=== PATIENT | male | born 1965 | race Caucasian/White ===

== ENCOUNTER 2018-10-17 09:46 | Emergency (ER) | payer SELFPAY ==
--- NOTE | 2018-10-17 10:34 | RAD ---
EXAM: XR Foot Rt 3 View STANDARD PROVIDED CLINICAL HISTORY: Right great toe osteomyelitis COMPARISON: 11/10/2007 FINDINGS: There is a fragmented and osteolytic appearance to the great toe terminal tuft. There is soft tissue swelling surrounding this bony change. No additional acute osseous abnormality is evident. Alignment appears otherwise anatomic. Joint spaces appear preserved. Calcaneal enthesophyte formation is noted. IMPRESSION: Fragmentation and osteolysis of the great toe terminal tuft, compatible with osteomyelitis in the zeferino ropriate clinical context.
== END 2018-10-17 11:45 | disposition home or self-care (01) ==
LOC: ERS 09:46
DX: M86.9 Osteomyelitis, unspecified (principal); E66.01 Morbid (severe) obesity due to excess calories; E11.9 Type 2 diabetes mellitus without complications; Z79.4 Long term (current) use of insulin; Z79.899 Other long term (current) drug therapy

== ENCOUNTER 2021-12-05 16:35 | Inpatient (IN) | payer OTHER ==
[2021-12-05 17:30] LABS: #Basophils 0.1 thou/uL (0.0-0.2); #Eosinphils 0.1 thou/uL (0.0-0.7); #Lymphocytes 1.9 thou/uL (1.20-3.40); #Monocytes 0.6 thou/uL (0.11-0.59); #Neutrophils 8.3 thou/uL (1.40-6.50); %Basophils 0.7 % (0.0-1.0); %Eosinophils 1.2 % (0.0-10.0); %Lymphocytes 17.4 % (21.0-51.0); %Monocytes 5.3 % (0.0-10.0); %Neutrophils 75.4 % (42.0-75.0); Hemoglobin 13.3 g/dL (14.0-18.0); Mean Corpuscular HGB CONC 29.5 g/dL (32.0-36.0); Mean Corpuscular Hemoglobin 22.9 pg (27.0-31.0); Mean Corpuscular Volume 77.6 fL (78.0-98.0); Mean Platelet Volume 6.2 fL (7.4-10.4); Platelet Count 227 thou/uL (130-400); RBC Distribution Width 20.8 % (11.5-14.5); Red Blood Cell (RBC) Count 5.81 mill/uL (4.70-6.10)
[2021-12-05 17:49] LABS: Anisocytosis SLIGHT = 6-15 cells (100X) (0-5/hpf); Hypochromia SLIGHT = 6-15 cells (100X) (0-5/hpf); MDiff Complete? YES; Microcytosis SLIGHT = 6-15 cells (100X) (0-5/hpf); Ovalocytes SLIGHT = 2-5 cells (100X) (0-1/hpf); Platelet Morphology Comment Appears Adequate; Polychromasia SLIGHT = 2-3 cells (100X) (0-2/hpf); Tear Drops SLIGHT = 2-5 cells (100X) (0-1/hpf)
[2021-12-05 17:51] LABS: ALT (SGPT) 10 U/L (8-55); AST (SGOT) 12 U/L (5-34); Albumin 4.1 g/dL (3.5-5.0); Alkaline Phosphatase 80 U/L (40-110); Anion Gap 16 mmol/L (10-20); BUN (Urea Nitrogen) 25 mg/dL (8.4-25.7); Bilirubin, Total 1.4 mg/dL (0.2-1.2); Calc. Creatinine Clearance 0 mL/min (70-130); Calcium 9.2 mg/dL (7.8-10.44); Carbon Dioxide 22 mmol/L (22-29); Chloride 96 mmol/L (98-107); Globulin 3.2 g/dL (2.4-3.5); Magnesium 1.5 mg/dL (1.6-2.6); Potassium 4.2 mmol/L (3.5-5.1); Protein, Total 7.3 g/dL (6.0-8.3); Sodium 130 mmol/L (136-145)
[2021-12-05 18:04] LABS: Glucose 555 mg/dL (70-105)
[2021-12-05] MEDS ORDERED: Magnesium 2 GM/50 ML BAG (IN WATER) ONE (18:29)
[2021-12-05] MEDS ORDERED: cefTRIAXone\\ROCEPHIN 2 GM VIAL ONE (18:30)
[2021-12-05] MEDS ORDERED: Vancomycin 1 GM/200 ML BAG ONE ×2 (18:34→21:08)
[2021-12-05] MEDS ORDERED: Digoxin 0.5 MG/2 ML AMP ONE (18:54)
[2021-12-05] MEDS ORDERED: methylPREDNISolone Sod Succ/PF 125 MG/2 ML VIAL ONE (19:00)
[2021-12-05] MEDS ORDERED: diphenhydrAMINE 50 MG/ML VIAL ONE (19:00)
[2021-12-05] MEDS ORDERED: EPINEPHrine 1 MG/ML VIAL ONE (19:03)
[2021-12-05] MEDS ORDERED: EPINEPHrine 1 MG/10 ML Abboject SYRINGE ONE (19:03)
[2021-12-05] MEDS ORDERED: Ondansetron PF 4 MG/2 ML Vial ONE (19:05)
[2021-12-05] MEDS ORDERED: Norepinephrine 8 MG/0.9% NS 250 ML ONE (19:05)
[2021-12-05] MEDS ORDERED: Midazolam HCl 2 mg/2 ml Vial ONE (19:19)
[2021-12-05] MEDS ORDERED: Fentanyl 100 MCG/2 ML VIAL ONE (19:22)
[2021-12-05] MEDS ORDERED: Acetaminophen 650 MG Suppository PR PRN (19:44)
[2021-12-05] MEDS ORDERED: HumaLOG 300 UNITS/3 ML VIAL SC PRN (19:44)
[2021-12-05] MEDS ORDERED: Dextrose 5% in Water 1,000 ML IV PRN (19:44)
[2021-12-05] MEDS ORDERED: Ondansetron PF 4 MG/2 ML Vial IVP PRN (19:44)
[2021-12-05] MEDS ORDERED: Ondansetron ODT 4 MG TAB PO PRN (19:44)
[2021-12-05] MEDS ORDERED: Dextrose 50% Abboject 50 ML SYRINGE SLOW IVP PRN (19:44)
[2021-12-05] MEDS ORDERED: Electrolyte Replacement Protocol 1 EACH FS SCH (20:00)
[2021-12-05] MEDS ORDERED: Amiodarone 150 MG/3 ML VIAL ONE (20:01)
[2021-12-05] MEDS ORDERED: Amiodarone 450 MG, Admixture Fee 1 EACH in Dextrose 5% in Water 250 ML IVPB SCH (20:15)
[2021-12-05 20:18] LABS: Lactic Acid 2.6 mmol/L (0.5-2.2)
[2021-12-05 20:44] LABS: Bilirubin Negative (Negative); Blood, Urine Negative (Negative); Clarity Clear (Clear); Glucose, Urine (Dipstick) Greater than 1000 mg/dL (Negative); Ketone, Urine Negative (Negative); Leukocyte Negative Leu/uL (Negative); Nitrite Negative (Negative); Protein, Urine (Dipstick) 20 mg/dL (Neg-Trace); Specific Gravity, Urine 1.017 (1.002-1.036)
[2021-12-05 21:31] LABS: SARS-CoV-2 NAA Rapid Test Not Detected (NotDetected)
[2021-12-05] MEDS ORDERED: Sodium Chloride 0.9% 1,000 ML IV SCH (21:45)
[2021-12-06] MEDS: HumaLOG 300 UNITS/3 ML VIAL SC PRN ×5 (00:06→21:32)
[2021-12-06 00:36] LABS: Lactic Acid 1.5 mmol/L (0.5-2.2)
[2021-12-06 00:44] LABS: Troponin I 0.042 ng/mL (< 0.028)
[2021-12-06] MEDS ORDERED: Apixaban 5 MG TAB PO SCH (00:45)
[2021-12-06 04:04] LABS: Anion Gap 15 mmol/L (10-20); BUN (Urea Nitrogen) 28 mg/dL (8.4-25.7); Calc. Creatinine Clearance 143 mL/min (70-130); Calcium 8.8 mg/dL (7.8-10.44); Carbon Dioxide 20 mmol/L (22-29); Chloride 100 mmol/L (98-107); Glucose 541 mg/dL (70-105); Iron 22 ug/dL (65-175); Iron Binding Capacity, Total 305 mcg/dL (261-462); Potassium 4.9 mmol/L (3.5-5.1); Sodium 130 mmol/L (136-145)
[2021-12-06 04:06] LABS: #Lymphocytes 0.7 thou/uL (1.20-3.40); #Monocytes 0.1 thou/uL (0.11-0.59); #Neutrophils 11.4 thou/uL (1.40-6.50); %Eosinophils 0.1 % (0.0-10.0); %Lymphocytes 5.5 % (21.0-51.0); %Monocytes 0.7 % (0.0-10.0); %Neutrophils 93.6 % (42.0-75.0); Anisocytosis MODERATE=16-30 cells (100X) (0-5/hpf); Elliptocytes SLIGHT = 2-5 cells (100X) (0-1/hpf); Hemoglobin 14.2 g/dL (14.0-18.0); Hypochromia SLIGHT = 6-15 cells (100X) (0-5/hpf); MDiff Complete? YES; Mean Corpuscular HGB CONC 29.4 g/dL (32.0-36.0); Mean Corpuscular Hemoglobin 23.2 pg (27.0-31.0); Mean Corpuscular Volume 78.9 fL (78.0-98.0); Mean Platelet Volume 5.9 fL (7.4-10.4); Platelet Count 186 thou/uL (130-400); Platelet Morphology Comment Appears Adequate; Polychromasia SLIGHT = 2-3 cells (100X) (0-2/hpf); Tear Drops SLIGHT = 2-5 cells (100X) (0-1/hpf); White Blood Cell (WBC) Count 12.1 thou/uL (4.8-10.8)
[2021-12-06 04:11] LABS: Iron 23 ug/dL (65-175); Iron Binding Capacity, Total 304 mcg/dL (261-462)
[2021-12-06] MEDS: Acetaminophen 325 MG TAB PO PRN (05:28)
[2021-12-06 07:26] LABS: Acetaminophen Less than 10.0 mcg/mL (10.0-30.0); Alcohol Less than 10 mg/dL (Less than 10); Salicylate Less than 8.0 mg/dL (15.0-30.0)
[2021-12-06] MEDS: Apixaban 5 MG TAB PO SCH ×2 (07:28→20:05)
[2021-12-06] MEDS: Aspirin 81 mg Enteric Coated Tablet PO SCH (07:28)
[2021-12-06 07:50] LABS: Amphetamine Not Detected (NotDetected); Barbiturates Screen Not Detected (NotDetected); Benzodiazepine Screen Not Detected (NotDetected); Cocaine Metabolite Screen Not Detected (NotDetected); Methadone Not Detected (NotDetected); Methamphetamine Not Detected (NotDetected); Opiate Screen Not Detected (NotDetected); Oxycodone Screen Not Detected (NotDetected); Phencyclidine (PCP) Not Detected (NotDetected); THC/Cannabinoid Screen Not Detected (NotDetected); Tricyclic Screen Not Detected (NotDetected)
[2021-12-06] MEDS: Famotidine 20 MG TAB PO SCH ×2 (09:27→20:05)
[2021-12-06] MEDS ORDERED: Insulin Glargine 30 UNITS/0.3 ML VIAL SC SCH ×2 (10:30→14:00)
[2021-12-06] MEDS ORDERED: Sodium Chloride 0.9% 500 ML IV SCH (10:30)
[2021-12-06] MEDS ORDERED: Amiodarone 450 MG, Admixture Fee 1 EACH in Dextrose 5% in Water 250 ML IVPB SCH ×2 (15:56→16:00)
[2021-12-06] MEDS: Amiodarone 200 MG TAB PO SCH (20:04)
[2021-12-06] MEDS: Simvastatin 10 MG TAB PO SCH (20:05)
[2021-12-07 03:53] LABS: #Lymphocytes 0.9 thou/uL (1.20-3.40); #Monocytes 0.7 thou/uL (0.11-0.59); #Neutrophils 9.8 thou/uL (1.40-6.50); %Basophils 0.1 % (0.0-1.0); %Eosinophils 0.2 % (0.0-10.0); %Lymphocytes 8.1 % (21.0-51.0); %Monocytes 5.9 % (0.0-10.0); %Neutrophils 85.7 % (42.0-75.0); Hemoglobin 13.1 g/dL (14.0-18.0); Mean Corpuscular HGB CONC 29.2 g/dL (32.0-36.0); Mean Corpuscular Hemoglobin 23.4 pg (27.0-31.0); Mean Corpuscular Volume 80.1 fL (78.0-98.0); Mean Platelet Volume 6.4 fL (7.4-10.4); Platelet Count 181 thou/uL (130-400); RBC Distribution Width 20.5 % (11.5-14.5); Red Blood Cell (RBC) Count 5.59 mill/uL (4.70-6.10); White Blood Cell (WBC) Count 11.4 thou/uL (4.8-10.8)
[2021-12-07 03:59] LABS: ALT (SGPT) 10 U/L (8-55); AST (SGOT) 11 U/L (5-34); Albumin 3.9 g/dL (3.5-5.0); Alkaline Phosphatase 69 U/L (40-110); Anion Gap 15 mmol/L (10-20); BUN (Urea Nitrogen) 27 mg/dL (8.4-25.7); Bilirubin, Total 1.2 mg/dL (0.2-1.2); Calc. Creatinine Clearance 169 mL/min (70-130); Calcium 9.4 mg/dL (7.8-10.44); Carbon Dioxide 23 mmol/L (22-29); Chloride 100 mmol/L (98-107); Glucose 504 mg/dL (70-105); Magnesium 2.1 mg/dL (1.6-2.6); Potassium 4.9 mmol/L (3.5-5.1); Protein, Total 6.9 g/dL (6.0-8.3); Sodium 133 mmol/L (136-145)
[2021-12-07] MEDS: HumaLOG 300 UNITS/3 ML VIAL SC PRN ×5 (05:46→21:29)
[2021-12-07] MEDS: Aspirin 81 mg Enteric Coated Tablet PO SCH (07:18)
[2021-12-07] MEDS: Insulin Glargine 30 UNITS/0.3 ML VIAL SC SCH (07:19)
[2021-12-07] MEDS: Amiodarone 200 MG TAB PO SCH ×3 (07:19→21:29)
[2021-12-07] MEDS: Apixaban 5 MG TAB PO SCH ×2 (07:19→21:28)
[2021-12-07] MEDS: Famotidine 20 MG TAB PO SCH ×2 (07:19→21:29)
[2021-12-07] MEDS ORDERED: Insulin Glargine 30 UNITS/0.3 ML VIAL SC SCH ×2 (09:00→21:00)
[2021-12-07] MEDS ORDERED: Bisacodyl 10 MG SUPP PR PRN (11:46)
[2021-12-07] MEDS ORDERED: Bisacodyl 10 MG SUPP PR SCH (12:00)
[2021-12-07] MEDS ORDERED: Milk Of Magnesia 30 ML UDCUP PO SCH (12:00)
[2021-12-07] MEDS: Simvastatin 10 MG TAB PO SCH (21:28)
[2021-12-07] MEDS: Milk Of Magnesia 30 ML UDCUP PO PRN (21:38)
[2021-12-07] MEDS ORDERED: Fleet Enema 133 ML BOT PR SCH (22:00)
[2021-12-08] MEDS: Acetaminophen 325 MG TAB PO PRN ×2 (04:43→15:24)
[2021-12-08] MEDS: HumaLOG 300 UNITS/3 ML VIAL SC PRN ×3 (06:30→18:27)
[2021-12-08] MEDS: Amiodarone 200 MG TAB PO SCH ×3 (10:07→20:58)
[2021-12-08] MEDS: Milk Of Magnesia 30 ML UDCUP PO PRN (10:07)
[2021-12-08] MEDS: Aspirin 81 mg Enteric Coated Tablet PO SCH (10:07)
[2021-12-08] MEDS: Apixaban 5 MG TAB PO SCH ×2 (10:07→20:58)
[2021-12-08] MEDS: Lisinopril 20 MG TAB PO SCH (10:08)
[2021-12-08] MEDS: Famotidine 20 MG TAB PO SCH ×2 (10:08→20:59)
[2021-12-08] MEDS: Insulin Glargine 30 UNITS/0.3 ML VIAL SC SCH ×2 (10:09→20:58)
[2021-12-08] MEDS: Simvastatin 10 MG TAB PO SCH (20:59)
[2021-12-09] MEDS: HumaLOG 300 UNITS/3 ML VIAL SC PRN ×3 (05:47→21:43)
[2021-12-09] MEDS: Lisinopril 20 MG TAB PO SCH (09:06)
[2021-12-09] MEDS: Amiodarone 200 MG TAB PO SCH ×3 (09:06→21:43)
[2021-12-09] MEDS: Apixaban 5 MG TAB PO SCH ×2 (09:07→21:43)
[2021-12-09] MEDS: Famotidine 20 MG TAB PO SCH ×2 (09:07→21:43)
[2021-12-09] MEDS: Aspirin 81 mg Enteric Coated Tablet PO SCH (09:07)
[2021-12-09] MEDS: Insulin Glargine 30 UNITS/0.3 ML VIAL SC SCH ×2 (09:08→21:43)
[2021-12-09] MEDS ORDERED: Bisacodyl 10 MG SUPP PR SCH (11:00)
[2021-12-09] MEDS ORDERED: Milk Of Magnesia 30 ML UDCUP PO SCH (11:15)
[2021-12-09] MEDS: Simvastatin 10 MG TAB PO SCH (21:43)
[2021-12-10] MEDS: HumaLOG 300 UNITS/3 ML VIAL SC PRN ×4 (06:47→21:01)
[2021-12-10 08:52] LABS: #Eosinphils 0.2 thou/uL (0.0-0.7); #Lymphocytes 1.1 thou/uL (1.20-3.40); #Monocytes 0.5 thou/uL (0.11-0.59); #Neutrophils 6.4 thou/uL (1.40-6.50); %Basophils 0.3 % (0.0-1.0); %Eosinophils 2.7 % (0.0-10.0); Anisocytosis SLIGHT = 6-15 cells (100X) (0-5/hpf); Elliptocytes SLIGHT = 2-5 cells (100X) (0-1/hpf); Hemoglobin 13.8 g/dL (14.0-18.0); Large Platelets SLIGHT; MDiff Complete? YES; Mean Corpuscular HGB CONC 29.2 g/dL (32.0-36.0); Mean Corpuscular Hemoglobin 23.1 pg (27.0-31.0); Mean Corpuscular Volume 79.2 fL (78.0-98.0); Platelet Count 194 thou/uL (130-400); Platelet Morphology Comment Appears Adequate; RBC Distribution Width 19.8 % (11.5-14.5); Red Blood Cell (RBC) Count 5.99 mill/uL (4.70-6.10); White Blood Cell (WBC) Count 8.2 thou/uL (4.8-10.8)
[2021-12-10] MEDS ORDERED: Insulin Glargine 30 UNITS/0.3 ML VIAL SC SCH ×2 (09:00→09:58)
[2021-12-10] MEDS: Lisinopril 20 MG TAB PO SCH (09:51)
[2021-12-10] MEDS: Milk Of Magnesia 30 ML UDCUP PO SCH (09:51)
[2021-12-10] MEDS: Insulin Glargine 30 UNITS/0.3 ML VIAL SC SCH (09:51)
[2021-12-10] MEDS: Famotidine 20 MG TAB PO SCH ×2 (09:52→21:01)
[2021-12-10] MEDS: Aspirin 81 mg Enteric Coated Tablet PO SCH (09:52)
[2021-12-10] MEDS: Apixaban 5 MG TAB PO SCH ×2 (09:52→21:01)
[2021-12-10] MEDS: Amiodarone 200 MG TAB PO SCH ×3 (09:52→21:01)
[2021-12-10] MEDS ORDERED: Bumetanide 1 MG TAB PO SCH ×2 (09:58→10:15)
[2021-12-10] MEDS: HumaLOG 300 UNITS/3 ML VIAL SC SCH ×2 (12:48→17:27)
[2021-12-10] MEDS: Simvastatin 10 MG TAB PO SCH (21:01)
[2021-12-11] MEDS: HumaLOG 300 UNITS/3 ML VIAL SC PRN ×3 (05:50→17:42)
[2021-12-11] MEDS ORDERED: Bumetanide 1 MG TAB PO SCH ×4 (06:00→12:00)
[2021-12-11] MEDS ORDERED: Insulin Glargine 30 UNITS/0.3 ML VIAL SC SCH ×2 (09:00→21:00)
[2021-12-11] MEDS: HumaLOG 300 UNITS/3 ML VIAL SC SCH ×3 (09:06→17:41)
[2021-12-11] MEDS: Apixaban 5 MG TAB PO SCH ×2 (09:07→19:37)
[2021-12-11] MEDS: Amiodarone 200 MG TAB PO SCH ×3 (09:07→19:37)
[2021-12-11] MEDS: Famotidine 20 MG TAB PO SCH ×2 (09:07→19:37)
[2021-12-11] MEDS: Aspirin 81 mg Enteric Coated Tablet PO SCH (09:07)
[2021-12-11] MEDS: Lisinopril 20 MG TAB PO SCH (09:08)
[2021-12-11] MEDS: Milk Of Magnesia 30 ML UDCUP PO SCH (09:08)
[2021-12-11 09:24] VITALS: BMI 52.4
[2021-12-11] MEDS ORDERED: Metoprolol Tartrate 25 MG TAB PO SCH ×2 (13:15→21:00)
[2021-12-11 17:14] VITALS: TEMP 97.1
[2021-12-11] MEDS: Simvastatin 10 MG TAB PO SCH (19:38)
[2021-12-11 19:39] VITALS: BP 129/60
[2021-12-11] MEDS ORDERED: Lisinopril 20 MG TAB PO SCH (21:00)
== END 2021-12-11 20:14 | DRG 309 ==
LOC: ERS 16:35 → CCU 20:10 → 2NO 12-07 14:47
PROVIDERS: ADMIT Student in an Organized Health Care Education/Training Program; ATTEND Internal Medicine
DX: I48.19 Other persistent atrial fibrillation (principal); E87.2 Acidosis; N17.9 Acute kidney failure, unspecified; R65.10 Systemic inflammatory response syndrome (SIRS) of non-infectious origin without acute organ dysfunction; R45.851 Suicidal ideations; E87.1 Hypo-osmolality and hyponatremia; Z68.43 Body mass index [BMI] 50.0-59.9, adult; E11.65 Type 2 diabetes mellitus with hyperglycemia; E11.51 Type 2 diabetes mellitus with diabetic peripheral angiopathy without gangrene; I11.0 Hypertensive heart disease with heart failure; E66.01 Morbid (severe) obesity due to excess calories; E83.42 Hypomagnesemia; I95.9 Hypotension, unspecified; D50.9 Iron deficiency anemia, unspecified; G47.33 Obstructive sleep apnea (adult) (pediatric); T36.1X5A Adverse effect of cephalosporins and other beta-lactam antibiotics, initial encounter; I42.8 Other cardiomyopathies; K59.00 Constipation, unspecified; I50.9 Heart failure, unspecified; Z20.822 Contact with and (suspected) exposure to COVID-19; Z88.1 Allergy status to other antibiotic agents; Z88.5 Allergy status to narcotic agent; Z79.84 Long term (current) use of oral hypoglycemic drugs; Z79.01 Long term (current) use of anticoagulants; Z79.4 Long term (current) use of insulin; Z89.511 Acquired absence of right leg below knee
CPT/HCPCS: 36415; 36416; 71045; 76770; 80048; 80053; 80306; 80307; 81003; 82550; 82728; 83540; 83550; 83605; 83735; 83880; 84443; 84484; 85025; 85379; 87040; 87086; 93005; 94660; 96365; 96366; 96368; 96372; 96375; 96376; J0171; J0282; J0696; J1160; J1200; J1815; J2250; J2405; J2930; J3010; J3370; J3475; J7050; J7070; U0002

== ENCOUNTER 2022-02-07 14:45 | Outpatient (CLI) | payer OTHER ==
[2022-02-07 15:51] LABS: Hemoglobin 13.8 g/dL (13.5-17.5)
[2022-02-07 16:18] LABS: Anion Gap 15 mmol/L (10-20); BUN (Urea Nitrogen) 21 mg/dL (8.4-25.7); Calc. Creatinine Clearance 0 mL/min (70-130); Calcium 9.6 mg/dL (7.8-10.44); Carbon Dioxide 28 mmol/L (22-29); Chloride 102 mmol/L (98-107); Estimated GFR 95; Glucose 205 mg/dL (70-105); Potassium 5.4 mmol/L (3.5-5.1); Sodium 140 mmol/L (136-145)
== END 2022-02-07 14:46 | disposition home or self-care (01) ==
LOC: LABBT 14:45
PROVIDERS: ATTEND Internal Medicine Cardiovascular Disease
DX: Z01.812 Encounter for preprocedural laboratory examination (principal); Z20.822 Contact with and (suspected) exposure to COVID-19
CPT/HCPCS: 80048; 85014; 85018; 87811

== ENCOUNTER 2022-02-12 05:14 | Day surgery (SDC) | payer OTHER ==
[2022-02-11 09:33] VITALS: BMI 57.2
[2022-02-12] MEDS ORDERED: Lidocaine 1% 50ML VIAL ONE (07:24)
[2022-02-12] MEDS ORDERED: Acetaminophen/Codeine 30-300mg Tablet ONE (09:35)
== END 2022-02-12 13:09 | disposition home or self-care (01) ==
LOC: SDC 05:14
PROVIDERS: ATTEND Internal Medicine Cardiovascular Disease
PROC: 04HY32Z Insertion of Monitoring Device into Lower Artery, Percutaneous Approach (ICD-10-PCS; principal; 2022-02-12)
DX: E11.51 Type 2 diabetes mellitus with diabetic peripheral angiopathy without gangrene (principal); I70.212 Atherosclerosis of native arteries of extremities with intermittent claudication, left leg; I10 Essential (primary) hypertension; E78.5 Hyperlipidemia, unspecified; I48.20 Chronic atrial fibrillation, unspecified; F17.290 Nicotine dependence, other tobacco product, uncomplicated; G47.30 Sleep apnea, unspecified; I83.90 Asymptomatic varicose veins of unspecified lower extremity; E66.01 Morbid (severe) obesity due to excess calories; Z68.43 Body mass index [BMI] 50.0-59.9, adult; Z79.01 Long term (current) use of anticoagulants; Z79.4 Long term (current) use of insulin; Z79.82 Long term (current) use of aspirin; Z79.84 Long term (current) use of oral hypoglycemic drugs; Z79.899 Other long term (current) drug therapy; Z88.1 Allergy status to other antibiotic agents; Z88.5 Allergy status to narcotic agent; Z88.8 Allergy status to other drugs, medicaments and biological substances; Z89.511 Acquired absence of right leg below knee
CPT/HCPCS: 36247; 75710; C1769; C1894; J3490

== ENCOUNTER 2022-08-05 13:39 | Inpatient (IN) | payer OTHER ==
[2022-08-05 14:20] LABS: #Basophils 0.1 thou/uL (0.0-0.2); #Eosinphils 0.3 thou/uL (0.0-0.7); #Lymphocytes 2.4 thou/uL (1.20-3.40); #Monocytes 0.8 thou/uL (0.11-0.59); #Neutrophils 8.6 thou/uL (1.40-6.50); %Basophils 0.7 % (0.0-1.0); %Eosinophils 2.5 % (0.0-10.0); %Lymphocytes 19.6 % (21.0-51.0); %Monocytes 6.6 % (0.0-10.0); %Neutrophils 70.6 % (42.0-75.0); Hemoglobin 15.9 g/dL (14.0-18.0); Mean Corpuscular HGB CONC 32.5 g/dL (32.0-36.0); Mean Corpuscular Hemoglobin 26.8 pg (27.0-31.0); Mean Corpuscular Volume 82.6 fl (78.0-98.0); Platelet Count 250 10x3/uL (130-400); RBC Distribution Width 16.6 % (11.5-14.5); Red Blood Cell (RBC) Count 5.93 mill/uL (4.70-6.10); White Blood Cell (WBC) Count 12.2 10x3/uL (4.8-10.8)
[2022-08-05 14:40] LABS: ALT (SGPT) 14 U/L (8-55); AST (SGOT) 15 U/L (5-34); Alkaline Phosphatase 115 U/L (40-110); Anion Gap 14 mmol/L (10-20); BUN (Urea Nitrogen) 40 mg/dL (8.4-25.7); Bilirubin, Total 0.7 mg/dL (0.2-1.2); Calc. Creatinine Clearance 0 mL/min (70-130); Calcium 8.9 mg/dL (7.8-10.44); Carbon Dioxide 21 mmol/L (22-29); Chloride 106 mmol/L (98-107); Estimated GFR 82; Globulin 2.9 g/dL (2.4-3.5); Glucose 69 mg/dL (70-105); Potassium 4.5 mmol/L (3.5-5.1); Protein, Total 6.9 g/dL (6.0-8.3); Sodium 136 mmol/L (136-145)
[2022-08-05] MEDS ORDERED: Dextrose 50% Abboject 50 ML SYRINGE ONE (14:46)
[2022-08-05] MEDS ORDERED: Nitroglycerin 2% Ointment 1 INCH/1 GM Packet ONE (14:53)
[2022-08-05 18:15] LABS: Troponin I Less than 0.010 ng/mL (< 0.028)
[2022-08-05 18:43] LABS: Bacteria/HPF 4+ HPF (None Seen); Bilirubin Negative (Negative); Blood, Urine 1+ (Negative); Clarity Turbid (Clear); Glucose, Urine (Dipstick) Normal (Negative); Ketone, Urine Negative (Negative); Leukocyte 500 Leu/uL (Negative); Nitrite 2+ (Negative); Protein, Urine (Dipstick) 10 mg/dL (Neg-Trace); Specific Gravity, Urine 1.018 (1.002-1.036); Squamous Epithelial 0-3 HPF (0-3); Urobilinogen Normal mg/dL (Less than 2); WBC/HPF Greater than 50 HPF (0-3); pH, Urine 5.5 (5.0-9.0)
[2022-08-05] MEDS ORDERED: clonazePAM 0.5 MG TAB PO PRN (21:21)
[2022-08-05] MEDS ORDERED: Milk Of Magnesia 30 ML UDCUP PO PRN (21:21)
[2022-08-05] MEDS ORDERED: Bumetanide 1 MG TAB PO PRN (21:21)
[2022-08-05 21:22] LABS: Troponin I Less than 0.010 ng/mL (< 0.028)
[2022-08-05] MEDS ORDERED: Senokot S 8.6-50 MG TAB PO PRN (21:24)
[2022-08-05] MEDS ORDERED: Ondansetron ODT 4 MG TAB PO PRN (21:24)
[2022-08-05] MEDS ORDERED: Acetaminophen 325 MG TAB PO PRN (21:24)
[2022-08-05] MEDS ORDERED: Dextrose 50% Abboject 50 ML SYRINGE SLOW IVP PRN (21:27)
[2022-08-05] MEDS ORDERED: Dextrose 5% in Water 1,000 ML IV PRN (21:27)
[2022-08-05 23:54] VITALS: BMI 55.3
[2022-08-06] MEDS: HumaLOG 300 UNITS/3 ML VIAL SC PRN ×4 (01:17→22:48)
[2022-08-06 05:50] LABS: Anion Gap 9 mmol/L (10-20); BUN (Urea Nitrogen) 30 mg/dL (8.4-25.7); Calc. Creatinine Clearance 194 mL/min (70-130); Calcium 8.7 mg/dL (7.8-10.44); Carbon Dioxide 27 mmol/L (22-29); Chloride 103 mmol/L (98-107); Estimated GFR 83; Glucose 313 mg/dL (70-105); Potassium 5.2 mmol/L (3.5-5.1); Sodium 134 mmol/L (136-145)
[2022-08-06] MEDS: Bumetanide 1 MG TAB PO SCH (06:13)
[2022-08-06] MEDS: Carvedilol 25 MG TAB PO SCH ×2 (08:16→18:24)
[2022-08-06] MEDS: Apixaban 5 MG TAB PO SCH ×2 (08:16→21:25)
[2022-08-06] MEDS: Famotidine 20 MG TAB PO SCH ×2 (08:17→21:25)
[2022-08-06] MEDS: Insulin Glargine 30 UNITS/0.3 ML VIAL SC SCH (08:18)
[2022-08-06] MEDS: Lisinopril 20 MG TAB PO SCH (08:20)
[2022-08-06] MEDS ORDERED: metFORMIN 500 MG TAB PO SCH (09:00)
[2022-08-06] MEDS ORDERED: Insulin Glargine 30 UNITS/0.3 ML VIAL SC SCH (09:00)
[2022-08-06 09:09] LABS: Glucose 382 mg/dL (70-105)
[2022-08-06] MEDS ORDERED: Bumetanide 1 MG TAB PO SCH (12:00)
[2022-08-06 20:33] VITALS: TEMP 98.4
[2022-08-06] MEDS ORDERED: Liraglutide [Victoza 2-Pak] 0.6 MG/0.1 ML Pen.Injctr SC SCH (21:00)
[2022-08-06] MEDS: Simvastatin 10 MG TAB PO SCH (21:25)
[2022-08-06 21:41] LABS: Glucose 462 mg/dL (70-105)
[2022-08-07] MEDS: Apixaban 5 MG TAB PO SCH ×2 (00:42→08:57)
[2022-08-07] MEDS: Famotidine 20 MG TAB PO SCH ×2 (00:43→08:57)
[2022-08-07] MEDS: Simvastatin 10 MG TAB PO SCH (00:44)
[2022-08-07 03:54] VITALS: BP 126/93
[2022-08-07] MEDS: HumaLOG 300 UNITS/3 ML VIAL SC PRN (04:53)
[2022-08-07] MEDS: Bumetanide 1 MG TAB PO SCH (07:06)
[2022-08-07] MEDS: Carvedilol 25 MG TAB PO SCH (08:56)
[2022-08-07] MEDS: Insulin Glargine 30 UNITS/0.3 ML VIAL SC SCH (08:57)
[2022-08-07] MEDS: Lisinopril 20 MG TAB PO SCH (08:57)
== END 2022-08-07 08:45 | disposition home or self-care (01) | DRG 391 ==
LOC: ERS 13:39 → 2SW 17:21 → OBSVTOIN 08-06 08:17
PROVIDERS: ADMIT Family Medicine; ATTEND Hospitalist
PROC: 5A09357 Assistance with Respiratory Ventilation, Less than 24 Consecutive Hours, Continuous Positive Airway Pressure (ICD-10-PCS; principal; 2022-08-06)
PROC: 8E0ZXY6 Isolation (ICD-10-PCS; 2022-08-06)
DX: K21.9 Gastro-esophageal reflux disease without esophagitis (principal); U07.1 COVID-19; N39.0 Urinary tract infection, site not specified; I50.32 Chronic diastolic (congestive) heart failure; J96.11 Chronic respiratory failure with hypoxia; I48.21 Permanent atrial fibrillation; Z68.43 Body mass index [BMI] 50.0-59.9, adult; R07.89 Other chest pain; E66.01 Morbid (severe) obesity due to excess calories; E11.51 Type 2 diabetes mellitus with diabetic peripheral angiopathy without gangrene; E78.5 Hyperlipidemia, unspecified; E11.610 Type 2 diabetes mellitus with diabetic neuropathic arthropathy; G47.33 Obstructive sleep apnea (adult) (pediatric); I11.0 Hypertensive heart disease with heart failure; R31.9 Hematuria, unspecified; Z88.8 Allergy status to other drugs, medicaments and biological substances; Z88.5 Allergy status to narcotic agent; Z86.718 Personal history of other venous thrombosis and embolism; Z98.890 Other specified postprocedural states; Z89.511 Acquired absence of right leg below knee; Z88.1 Allergy status to other antibiotic agents; Z79.84 Long term (current) use of oral hypoglycemic drugs; Z79.899 Other long term (current) drug therapy; Z79.4 Long term (current) use of insulin
CPT/HCPCS: 36415; 36416; 71045; 80048; 80053; 81003; 81015; 83880; 84484; 85025; 87077; 87086; 87186; 93005; 94660; 94760; 96365; G0378; J1815; J1956; J7999; Q0162; U0003; U0005

== ENCOUNTER 2023-01-19 12:19 | Inpatient (IN) | payer OTHER ==
[2023-01-19 13:07] LABS: #Basophils 0.1 thou/uL (0.0-0.2); #Eosinphils 0.2 thou/uL (0.0-0.7); #Monocytes 0.8 thou/uL (0.11-0.59); #Neutrophils 11.1 thou/uL (1.40-6.50); %Basophils 0.6 % (0.0-1.0); %Eosinophils 1.1 % (0.0-10.0); %Lymphocytes 13.5 % (21.0-51.0); %Monocytes 5.4 % (0.0-10.0); %Neutrophils 78.3 % (42.0-75.0); Hematocrit 48.5 % (42.0-52.0); Hemoglobin 15.8 g/dL (14.0-18.0); Mean Corpuscular HGB CONC 32.6 g/dL (32.0-36.0); Mean Corpuscular Hemoglobin 26.2 pg (27.0-31.0); Mean Corpuscular Volume 80.3 fl (78.0-98.0); Mean Platelet Volume 10.8 fL (7.4-10.4); Platelet Count 210 10x3/uL (130-400); Red Blood Cell (RBC) Count 6.04 mill/uL (4.70-6.10); White Blood Cell (WBC) Count 14.1 10x3/uL (4.8-10.8)
[2023-01-19 13:30] LABS: ALT (SGPT) 15 U/L (8-55); AST (SGOT) 16 U/L (5-34); Albumin 4.1 g/dL (3.5-5.0); Alkaline Phosphatase 87 U/L (40-110); Anion Gap 18 mmol/L (10-20); BUN (Urea Nitrogen) 65 mg/dL (8.4-25.7); Bilirubin, Total 0.5 mg/dL (0.2-1.2); Calc. Creatinine Clearance 0 mL/min (70-130); Calcium 9.2 mg/dL (7.8-10.44); Carbon Dioxide 26 mmol/L (22-29); Chloride 94 mmol/L (98-107); Estimated GFR 35; Glucose 227 mg/dL (70-105); Potassium 5.2 mmol/L (3.5-5.1); Protein, Total 7.1 g/dL (6.0-8.3); Sodium 133 mmol/L (136-145)
[2023-01-19] MEDS ORDERED: Ondansetron PF 4 MG/2 ML Vial ONE (13:45)
[2023-01-19] MEDS ORDERED: LevoFLOXacin 750 mg/D5W 150 ml Premix Bag ONE (15:42)
[2023-01-19] MEDS ORDERED: Dextrose 5% in Water 1,000 ML IV PRN (16:27)
[2023-01-19] MEDS ORDERED: Dextrose 50% Abboject 50 ML SYRINGE SLOW IVP PRN (16:27)
[2023-01-19] MEDS ORDERED: Glucagon 1 MG/ML KIT IM PRN (16:27)
[2023-01-19] MEDS: Furosemide 40 MG/4 ML VIAL SLOW IVP SCH (18:19)
[2023-01-19] MEDS ORDERED: Carvedilol 25 MG TAB PO SCH (21:00)
[2023-01-19] MEDS ORDERED: Pravastatin Sodium 20 MG TAB PO SCH (21:00)
[2023-01-19] MEDS: HumaLOG 300 UNITS/3 ML VIAL SC PRN (21:08)
[2023-01-19] MEDS: Propafenone HCl 150 MG TAB PO SCH (21:08)
[2023-01-19] MEDS: Apixaban 5 MG TAB PO SCH (21:08)
[2023-01-20 05:04] LABS: #Basophils 0.2 thou/uL (0.0-0.2); #Eosinphils 0.2 thou/uL (0.0-0.7); #Monocytes 0.8 thou/uL (0.11-0.59); #Neutrophils 7.6 thou/uL (1.40-6.50); %Basophils 1.5 % (0.0-1.0); %Eosinophils 1.4 % (0.0-10.0); %Lymphocytes 18.7 % (21.0-51.0); %Monocytes 7.6 % (0.0-10.0); %Neutrophils 69.6 % (42.0-75.0); Hematocrit 53.1 % (42.0-52.0); Hemoglobin 16.3 g/dL (14.0-18.0); Mean Corpuscular HGB CONC 30.7 g/dL (32.0-36.0); Mean Corpuscular Hemoglobin 26.2 pg (27.0-31.0); Platelet Count 162 10x3/uL (130-400); RBC Distribution Width 17.2 % (11.5-14.5); Red Blood Cell (RBC) Count 6.23 mill/uL (4.70-6.10); White Blood Cell (WBC) Count 10.9 10x3/uL (4.8-10.8)
[2023-01-20 05:11] LABS: Mean Corpuscular Volume 85.2 fl (78.0-98.0)
[2023-01-20 05:31] LABS: Anion Gap 17 mmol/L (10-20); BUN (Urea Nitrogen) 66 mg/dL (8.4-25.7); Calc. Creatinine Clearance 104 mL/min (70-130); Calcium 9.2 mg/dL (7.8-10.44); Carbon Dioxide 23 mmol/L (22-29); Chloride 95 mmol/L (98-107); Estimated GFR 38; Glucose 345 mg/dL (70-105); Potassium 4.7 mmol/L (3.5-5.1); Sodium 130 mmol/L (136-145)
[2023-01-20] MEDS: Furosemide 40 MG/4 ML VIAL SLOW IVP SCH (05:45)
[2023-01-20] MEDS: Propafenone HCl 150 MG TAB PO SCH ×3 (05:45→22:14)
[2023-01-20] MEDS: HumaLOG 300 UNITS/3 ML VIAL SC PRN ×4 (05:45→22:14)
[2023-01-20] MEDS: Aspirin 81 mg Enteric Coated Tablet PO SCH (08:54)
[2023-01-20] MEDS: Apixaban 5 MG TAB PO SCH ×2 (08:54→22:14)
[2023-01-20] MEDS: Rosuvastatin 20 MG TAB PO SCH (08:54)
[2023-01-20] MEDS: dilTIAZem CD 180 MG CAP PO SCH (08:54)
[2023-01-20] MEDS: Ferrous Sulfate 325 MG TAB PO SCH (08:54)
[2023-01-20] MEDS ORDERED: dilTIAZem CD 180 MG CAP PO SCH (12:30)
[2023-01-20] MEDS ORDERED: Insulin Glargine 30 UNITS/0.3 ML VIAL SC SCH (15:05)
[2023-01-20] MEDS: Carvedilol 25 MG TAB PO SCH (16:25)
[2023-01-20] MEDS ORDERED: Non-Formulary Item 1 EACH (Insulin Degludec [Tresiba Flextouch U-100] 100 UNIT/ML Insuln. SQ SCH (21:00)
[2023-01-20] MEDS: Melatonin 3 MG TAB PO PRN (22:14)
[2023-01-21 04:11] LABS: #Basophils 0.1 thou/uL (0.0-0.2); #Eosinphils 0.2 thou/uL (0.0-0.7); #Neutrophils 8.5 thou/uL (1.40-6.50); %Basophils 0.5 % (0.0-1.0); %Lymphocytes 18.6 % (21.0-51.0); %Monocytes 7.9 % (0.0-10.0); %Neutrophils 70.3 % (42.0-75.0); Hematocrit 53.2 % (42.0-52.0); Hemoglobin 16.9 g/dL (14.0-18.0); Mean Corpuscular HGB CONC 31.8 g/dL (32.0-36.0); Mean Corpuscular Hemoglobin 25.8 pg (27.0-31.0); Mean Platelet Volume 10.3 fL (7.4-10.4); Platelet Count 203 10x3/uL (130-400); RBC Distribution Width 17.2 % (11.5-14.5); Red Blood Cell (RBC) Count 6.54 mill/uL (4.70-6.10); White Blood Cell (WBC) Count 12.1 10x3/uL (4.8-10.8)
[2023-01-21 04:13] LABS: Mean Corpuscular Volume 81.3 fl (78.0-98.0)
[2023-01-21 04:37] LABS: Anion Gap 14 mmol/L (10-20); BUN (Urea Nitrogen) 72 mg/dL (8.4-25.7); Calc. Creatinine Clearance 114 mL/min (70-130); Calcium 9.8 mg/dL (7.8-10.44); Carbon Dioxide 27 mmol/L (22-29); Chloride 97 mmol/L (98-107); Estimated GFR 43; Glucose 136 mg/dL (70-105); Potassium 3.9 mmol/L (3.5-5.1); Sodium 134 mmol/L (136-145)
[2023-01-21] MEDS ORDERED: Furosemide 40 MG/4 ML VIAL SLOW IVP SCH (06:00)
[2023-01-21] MEDS: Propafenone HCl 150 MG TAB PO SCH ×3 (06:10→20:07)
[2023-01-21] MEDS: Aspirin 81 mg Enteric Coated Tablet PO SCH (08:17)
[2023-01-21] MEDS: Carvedilol 25 MG TAB PO SCH ×2 (08:17→16:42)
[2023-01-21] MEDS: Apixaban 5 MG TAB PO SCH ×2 (08:17→20:07)
[2023-01-21] MEDS: Insulin Glargine 30 UNITS/0.3 ML VIAL SC SCH ×2 (08:17→20:07)
[2023-01-21] MEDS: dilTIAZem CD 180 MG CAP PO SCH (08:17)
[2023-01-21] MEDS: Rosuvastatin 20 MG TAB PO SCH (08:17)
[2023-01-21] MEDS: Ferrous Sulfate 325 MG TAB PO SCH (08:17)
[2023-01-21] MEDS: Albumin 25% 25 GM/100 ML BOT IVPB SCH ×2 (08:18→13:52)
[2023-01-21] MEDS ORDERED: Metolazone 5 MG TAB PO SCH (08:30)
[2023-01-21] MEDS: HumaLOG 300 UNITS/3 ML VIAL SC PRN ×2 (11:12→17:39)
[2023-01-21] MEDS: Furosemide 40 MG TAB PO SCH (13:52)
[2023-01-21] MEDS: Melatonin 3 MG TAB PO PRN (20:20)
[2023-01-22] MEDS: Albumin 25% 25 GM/100 ML BOT IVPB SCH ×2 (01:35→06:24)
[2023-01-22 04:59] LABS: Anion Gap 17 mmol/L (10-20); BUN (Urea Nitrogen) 80 mg/dL (8.4-25.7); Calc. Creatinine Clearance 96 mL/min (70-130); Calcium 9.9 mg/dL (7.8-10.44); Carbon Dioxide 29 mmol/L (22-29); Chloride 94 mmol/L (98-107); Estimated GFR 35; Glucose 150 mg/dL (70-105); Potassium 3.9 mmol/L (3.5-5.1); Sodium 136 mmol/L (136-145)
[2023-01-22] MEDS: HumaLOG 300 UNITS/3 ML VIAL SC PRN ×4 (06:24→21:34)
[2023-01-22] MEDS: Propafenone HCl 150 MG TAB PO SCH ×3 (06:24→21:34)
[2023-01-22] MEDS: Insulin Glargine 30 UNITS/0.3 ML VIAL SC SCH ×2 (08:31→21:34)
[2023-01-22] MEDS: Carvedilol 25 MG TAB PO SCH ×2 (08:31→16:22)
[2023-01-22] MEDS: Ferrous Sulfate 325 MG TAB PO SCH (08:31)
[2023-01-22] MEDS: Aspirin 81 mg Enteric Coated Tablet PO SCH (08:31)
[2023-01-22] MEDS: dilTIAZem CD 180 MG CAP PO SCH (08:31)
[2023-01-22] MEDS: Rosuvastatin 20 MG TAB PO SCH (08:31)
[2023-01-22] MEDS: Furosemide 40 MG TAB PO SCH ×2 (08:31→14:08)
[2023-01-22] MEDS: Apixaban 5 MG TAB PO SCH ×2 (08:31→21:34)
[2023-01-22 11:16] VITALS: BMI 55.6
[2023-01-22] MEDS: Melatonin 3 MG TAB PO PRN (21:34)
[2023-01-23 04:58] LABS: Anion Gap 21 mmol/L (10-20); BUN (Urea Nitrogen) 83 mg/dL (8.4-25.7); Calc. Creatinine Clearance 95 mL/min (70-130); Calcium 10.2 mg/dL (7.8-10.44); Carbon Dioxide 26 mmol/L (22-29); Chloride 93 mmol/L (98-107); Estimated GFR 35; Glucose 83 mg/dL (70-105); Potassium 3.8 mmol/L (3.5-5.1); Sodium 136 mmol/L (136-145)
[2023-01-23] MEDS: Propafenone HCl 150 MG TAB PO SCH ×3 (06:07→12:19)
[2023-01-23] MEDS: Apixaban 5 MG TAB PO SCH (08:11)
[2023-01-23] MEDS: Carvedilol 25 MG TAB PO SCH (08:11)
[2023-01-23] MEDS: Furosemide 40 MG TAB PO SCH (08:11)
[2023-01-23] MEDS: dilTIAZem CD 180 MG CAP PO SCH (08:11)
[2023-01-23] MEDS: Ferrous Sulfate 325 MG TAB PO SCH (08:11)
[2023-01-23] MEDS: Aspirin 81 mg Enteric Coated Tablet PO SCH (08:11)
[2023-01-23] MEDS: Rosuvastatin 20 MG TAB PO SCH (08:12)
[2023-01-23] MEDS: Insulin Glargine 30 UNITS/0.3 ML VIAL SC SCH (08:19)
[2023-01-23] MEDS: HumaLOG 300 UNITS/3 ML VIAL SC PRN (12:27)
[2023-01-23 12:51] VITALS: BP 117/76; TEMP 97.9
== END 2023-01-23 14:38 | disposition home or self-care (01) | DRG 291 ==
LOC: ERS 12:19 → 2NO 14:46
PROVIDERS: ADMIT Internal Medicine; ATTEND Internal Medicine
PROC: 5A09357 Assistance with Respiratory Ventilation, Less than 24 Consecutive Hours, Continuous Positive Airway Pressure (ICD-10-PCS; principal; 2023-01-20)
DX: I13.0 Hypertensive heart and chronic kidney disease with heart failure and stage 1 through stage 4 chronic kidney disease, or unspecified chronic kidney disease (principal); I50.33 Acute on chronic diastolic (congestive) heart failure; J18.9 Pneumonia, unspecified organism; N17.9 Acute kidney failure, unspecified; Z68.43 Body mass index [BMI] 50.0-59.9, adult; E87.1 Hypo-osmolality and hyponatremia; I48.20 Chronic atrial fibrillation, unspecified; E11.65 Type 2 diabetes mellitus with hyperglycemia; F17.220 Nicotine dependence, chewing tobacco, uncomplicated; E11.51 Type 2 diabetes mellitus with diabetic peripheral angiopathy without gangrene; E66.01 Morbid (severe) obesity due to excess calories; F45.8 Other somatoform disorders; G47.33 Obstructive sleep apnea (adult) (pediatric); N18.30 Chronic kidney disease, stage 3 unspecified; E78.5 Hyperlipidemia, unspecified; E11.22 Type 2 diabetes mellitus with diabetic chronic kidney disease; Z79.4 Long term (current) use of insulin; Z79.899 Other long term (current) drug therapy; Z89.511 Acquired absence of right leg below knee; Z88.5 Allergy status to narcotic agent; Z88.8 Allergy status to other drugs, medicaments and biological substances; Z79.01 Long term (current) use of anticoagulants; Z79.82 Long term (current) use of aspirin; Z79.84 Long term (current) use of oral hypoglycemic drugs
CPT/HCPCS: 36415; 36416; 71045; 80048; 80053; 83880; 84484; 85025; 93005; 94660; 96365; 96375; J1815; J1940; J1956; J2405; P9047

== ENCOUNTER 2023-02-02 19:14 | Emergency (ER) | payer OTHER ==
[2023-02-02 19:51] LABS: #Basophils 0.1 thou/uL (0.0-0.2); #Eosinphils 0.3 thou/uL (0.0-0.7); #Monocytes 0.9 thou/uL (0.11-0.59); %Basophils 0.6 % (0.0-1.0); %Eosinophils 1.7 % (0.0-10.0); %Lymphocytes 14.6 % (21.0-51.0); %Monocytes 6.4 % (0.0-10.0); Hematocrit 45.9 % (42.0-52.0); Hemoglobin 15.7 g/dL (14.0-18.0); Mean Corpuscular HGB CONC 34.2 g/dL (32.0-36.0); Mean Corpuscular Hemoglobin 27.1 pg (27.0-31.0); Mean Corpuscular Volume 79.3 fl (78.0-98.0); Platelet Count 377 10x3/uL (130-400); Red Blood Cell (RBC) Count 5.79 mill/uL (4.70-6.10); White Blood Cell (WBC) Count 14.4 10x3/uL (4.8-10.8)
[2023-02-02 20:15] LABS: ALT (SGPT) 17 U/L (8-55); AST (SGOT) 21 U/L (5-34); Albumin 4.3 g/dL (3.5-5.0); Alkaline Phosphatase 98 U/L (40-110); Anion Gap 17 mmol/L (10-20); BUN (Urea Nitrogen) 49 mg/dL (8.4-25.7); Bilirubin, Total 0.9 mg/dL (0.2-1.2); Calc. Creatinine Clearance 0 mL/min (70-130); Calcium 9.9 mg/dL (7.8-10.44); Carbon Dioxide 26 mmol/L (22-29); Chloride 96 mmol/L (98-107); Estimated GFR 48; Globulin 3.4 g/dL (2.4-3.5); Glucose 239 mg/dL (70-105); Potassium 3.9 mmol/L (3.5-5.1); Protein, Total 7.7 g/dL (6.0-8.3); Sodium 135 mmol/L (136-145)
== END 2023-02-02 23:10 | disposition home or self-care (01) ==
LOC: ERS 19:14
DX: M25.561 Pain in right knee (principal); I11.0 Hypertensive heart disease with heart failure; I50.9 Heart failure, unspecified; I48.91 Unspecified atrial fibrillation; E11.9 Type 2 diabetes mellitus without complications; F17.220 Nicotine dependence, chewing tobacco, uncomplicated; Z79.01 Long term (current) use of anticoagulants; Z79.899 Other long term (current) drug therapy; Z79.84 Long term (current) use of oral hypoglycemic drugs; Z79.82 Long term (current) use of aspirin
CPT/HCPCS: 80053; 83880; 85025; 93005; 94760

== ENCOUNTER 2023-02-04 07:18 | Inpatient (IN) | payer OTHER ==
[2023-02-04 08:09] LABS: #Basophils 0.1 thou/uL (0.0-0.2); #Eosinphils 0.2 thou/uL (0.0-0.7); #Monocytes 0.7 thou/uL (0.11-0.59); #Neutrophils 12.3 thou/uL (1.40-6.50); %Basophils 0.4 % (0.0-1.0); %Eosinophils 1.6 % (0.0-10.0); %Lymphocytes 10.7 % (21.0-51.0); %Monocytes 4.9 % (0.0-10.0); %Neutrophils 81.7 % (42.0-75.0); Hemoglobin 14.6 g/dL (14.0-18.0); Mean Corpuscular HGB CONC 31.7 g/dL (32.0-36.0); Mean Corpuscular Hemoglobin 26.2 pg (27.0-31.0); Mean Corpuscular Volume 82.4 fl (78.0-98.0); Mean Platelet Volume 10.6 fL (7.4-10.4); Platelet Count 187 10x3/uL (130-400); RBC Distribution Width 15.9 % (11.5-14.5); Red Blood Cell (RBC) Count 5.58 mill/uL (4.70-6.10); White Blood Cell (WBC) Count 15.1 10x3/uL (4.8-10.8)
[2023-02-04 08:26] LABS: INR-International Normal Ratio 1.5; Prothrombin Time 18.9 sec (12.0-14.7)
[2023-02-04 08:27] LABS: PTT 52.9 sec (22.9-36.1)
[2023-02-04] MEDS ORDERED: Vancomycin 1 GM/200 ML (FROZEN) BAG ONE (08:27)
[2023-02-04 08:32] LABS: ALT (SGPT) 15 U/L (8-55); AST (SGOT) 16 U/L (5-34); Albumin 3.7 g/dL (3.5-5.0); Alkaline Phosphatase 97 U/L (40-110); Anion Gap 15 mmol/L (10-20); BUN (Urea Nitrogen) 47 mg/dL (8.4-25.7); Bilirubin, Total 0.9 mg/dL (0.2-1.2); Calc. Creatinine Clearance 0 mL/min (70-130); Calcium 9.6 mg/dL (7.8-10.44); Carbon Dioxide 28 mmol/L (22-29); Chloride 95 mmol/L (98-107); Estimated GFR 47; Globulin 3.1 g/dL (2.4-3.5); Glucose 320 mg/dL (70-105); Potassium 4.2 mmol/L (3.5-5.1); Protein, Total 6.8 g/dL (6.0-8.3); Sodium 134 mmol/L (136-145)
[2023-02-04 09:26] LABS: Bacteria/HPF None Seen HPF (None Seen); Bilirubin Negative (Negative); Blood, Urine Negative (Negative); CAUTI Indications for Culture Dysuria,urgency,freq; Clarity Clear (Clear); Glucose, Urine (Dipstick) 70 mg/dL (Negative); Ketone, Urine Negative (Negative); Leukocyte Negative Leu/uL (Negative); Nitrite Negative (Negative); Protein, Urine (Dipstick) Negative (Neg-Trace); RBC/HPF 0-3 HPF (0-3); Specific Gravity, Urine 1.024 (1.002-1.036); Squamous Epithelial None Seen HPF (0-3); WBC/HPF 0-3 HPF (0-3)
[2023-02-04 09:28] LABS: Urine Culture Reflex No No
[2023-02-04] MEDS ORDERED: Iopamidol-370 76% 500 ML MDV (1 ML CHARGE) ONE (09:46)
[2023-02-04] MEDS ORDERED: Acetaminophen 325 MG TAB PO PRN (11:01)
[2023-02-04] MEDS ORDERED: Nicotine 14 MG PATCH TD PRN (11:01)
[2023-02-04] MEDS ORDERED: Senokot S 8.6-50 MG TAB PO PRN (11:01)
[2023-02-04] MEDS ORDERED: Acetaminophen 650 MG Suppository PR PRN (11:01)
[2023-02-04] MEDS ORDERED: Dextrose 50% Abboject 50 ML SYRINGE SLOW IVP PRN (11:03)
[2023-02-04] MEDS ORDERED: Melatonin 3 MG TAB PO PRN (11:03)
[2023-02-04] MEDS ORDERED: Dextrose 5% in Water 1,000 ML IV PRN (11:03)
[2023-02-04] MEDS ORDERED: Glucagon 1 MG/ML KIT IM PRN (11:03)
[2023-02-04] MEDS ORDERED: HumaLOG 300 UNITS/3 ML VIAL SC PRN (11:03)
[2023-02-04 11:22] LABS: Lactic Acid 1.3 mmol/L (0.5-2.2)
[2023-02-04 11:51] VITALS: BMI 54.8
[2023-02-04] MEDS ORDERED: Bumetanide 1 MG/4 ML VIAL IVP SCH ×2 (12:00→18:00)
[2023-02-04] MEDS: HumaLOG 300 UNITS/3 ML VIAL SC PRN ×2 (12:50→17:29)
[2023-02-04] MEDS: Propafenone HCl 150 MG TAB PO SCH ×2 (12:50→21:06)
[2023-02-04] MEDS ORDERED: Vancomycin 1.5 GRAM/300 ML BAG 1.5 GM in Premix Bag 1 BAG IVPB SCH (13:45)
[2023-02-04] MEDS ORDERED: Meropenem 1 GM in Sodium Chloride 0.9% 100 ML IVPB SCH ×2 (14:00→22:00)
[2023-02-04] MEDS ORDERED: Magnesium Citrate 300 ML BOT PO SCH (16:15)
[2023-02-04] MEDS ORDERED: Carvedilol 3.125 MG TAB PO SCH (21:00)
[2023-02-04] MEDS ORDERED: Vancomycin HCl 1 GM in Sodium Chloride 0.9% 250 ML 300 ML IVPB SCH (21:00)
[2023-02-04] MEDS: Meropenem 1 GM in Sodium Chloride 0.9% 100 ML IVPB SCH (21:05)
[2023-02-04] MEDS: Bumetanide 1 MG TAB PO SCH (21:06)
[2023-02-04] MEDS: Apixaban 5 MG TAB PO SCH (21:06)
[2023-02-04] MEDS ORDERED: Fleet Saline Enema 133 ML BOT PR SCH (22:00)
[2023-02-05 05:49] LABS: #Basophils 0.1 thou/uL (0.0-0.2); #Eosinphils 0.3 thou/uL (0.0-0.7); #Monocytes 0.7 thou/uL (0.11-0.59); #Neutrophils 7.9 thou/uL (1.40-6.50); %Basophils 0.5 % (0.0-1.0); %Eosinophils 2.7 % (0.0-10.0); %Lymphocytes 14.3 % (21.0-51.0); %Monocytes 6.6 % (0.0-10.0); %Neutrophils 74.9 % (42.0-75.0); Hematocrit 45.9 % (42.0-52.0); Hemoglobin 14.5 g/dL (14.0-18.0); Mean Corpuscular HGB CONC 31.6 g/dL (32.0-36.0); Mean Corpuscular Hemoglobin 26.3 pg (27.0-31.0); Mean Corpuscular Volume 83.2 fl (78.0-98.0); Mean Platelet Volume 10.7 fL (7.4-10.4); Platelet Count 180 10x3/uL (130-400); RBC Distribution Width 16.1 % (11.5-14.5); Red Blood Cell (RBC) Count 5.52 mill/uL (4.70-6.10); White Blood Cell (WBC) Count 10.5 10x3/uL (4.8-10.8)
[2023-02-05] MEDS: Meropenem 1 GM in Sodium Chloride 0.9% 100 ML IVPB SCH (05:58)
[2023-02-05] MEDS: HumaLOG 300 UNITS/3 ML VIAL SC PRN (05:58)
[2023-02-05] MEDS: Propafenone HCl 150 MG TAB PO SCH (05:58)
[2023-02-05 06:14] LABS: Anion Gap 15 mmol/L (10-20); BUN (Urea Nitrogen) 36 mg/dL (8.4-25.7); Calc. Creatinine Clearance 128 mL/min (70-130); Calcium 9.1 mg/dL (7.8-10.44); Carbon Dioxide 31 mmol/L (22-29); Chloride 95 mmol/L (98-107); Estimated GFR 51; Glucose 319 mg/dL (70-105); Potassium 4.6 mmol/L (3.5-5.1); Sodium 136 mmol/L (136-145)
[2023-02-05] MEDS ORDERED: Ferrous Sulfate 325 MG TAB PO SCH (08:00)
[2023-02-05] MEDS: Apixaban 5 MG TAB PO SCH (08:30)
[2023-02-05] MEDS: Bumetanide 1 MG TAB PO SCH (08:31)
[2023-02-05] MEDS ORDERED: Non-Formulary Item 1 EACH (Semaglutide [Ozempic] 0.25 MG/0.2 ML Pen.Injctr) SQ SCH (09:00)
[2023-02-05] MEDS ORDERED: dilTIAZem CD 120 MG CAP PO SCH (09:00)
[2023-02-05] MEDS ORDERED: dilTIAZem CD 180 MG CAP PO SCH (09:00)
[2023-02-05] MEDS ORDERED: Aspirin 81 mg Enteric Coated Tablet PO SCH (09:00)
[2023-02-05] MEDS ORDERED: Linezolid 600 MG TAB PO SCH ×3 (09:53→21:00)
[2023-02-05] MEDS ORDERED: Doxycycline 100 MG CAP PO SCH ×3 (09:53→21:00)
[2023-02-05 11:45] VITALS: BP 112/72; TEMP 98.1
[2023-02-05] MEDS ORDERED: Boostrix 0.5 ML (Tdap) VIAL (>/=7 yrs of age) IM ONE ×2 (12:00→12:15)
[2023-02-05] MEDS ORDERED: VANCOMYCIN 2 GRAM/500 ML BAG 2 GM in Premix Bag 1 BAG IVPB SCH (16:00)
[2023-02-05] MEDS ORDERED: Insulin Glargine 30 UNITS/0.3 ML VIAL SC SCH (21:00)
[2023-02-05] MEDS ORDERED: Non-Formulary Item 1 EACH (Insulin Degludec [Tresiba Flextouch U-100] 100 UNIT/ML Insuln. SQ SCH (21:00)
[2023-02-05] MEDS ORDERED: Rosuvastatin 20 MG TAB PO SCH (21:00)
== END 2023-02-05 14:31 | disposition home or self-care (01) | DRG 603 ==
LOC: ERS 07:18 → T4-B 11:27
PROVIDERS: ADMIT Internal Medicine; ATTEND Family Medicine
DX: L03.116 Cellulitis of left lower limb (principal); I50.32 Chronic diastolic (congestive) heart failure; I13.0 Hypertensive heart and chronic kidney disease with heart failure and stage 1 through stage 4 chronic kidney disease, or unspecified chronic kidney disease; I48.19 Other persistent atrial fibrillation; Z68.43 Body mass index [BMI] 50.0-59.9, adult; E11.51 Type 2 diabetes mellitus with diabetic peripheral angiopathy without gangrene; Z89.511 Acquired absence of right leg below knee; N18.30 Chronic kidney disease, stage 3 unspecified; E78.5 Hyperlipidemia, unspecified; G47.33 Obstructive sleep apnea (adult) (pediatric); E66.01 Morbid (severe) obesity due to excess calories
CPT/HCPCS: 36415; 36416; 71275; 80048; 80053; 81001; 83605; 85025; 85610; 85730; 87040; 87086; 90715; 93005; 93010; 94760; 96365; 96366; J1815; J2185; J3370; J3370-JW; J3490; Q9967

== ENCOUNTER 2023-02-16 09:52 | Inpatient (IN) | payer OTHER ==
[2023-02-16 10:45] LABS: #Basophils 0.1 thou/uL (0.0-0.2); #Eosinphils 0.3 thou/uL (0.0-0.7); #Monocytes 0.7 thou/uL (0.11-0.59); #Neutrophils 8.9 thou/uL (1.40-6.50); %Basophils 0.4 % (0.0-1.0); %Eosinophils 2.3 % (0.0-10.0); %Lymphocytes 12.6 % (21.0-51.0); %Monocytes 5.9 % (0.0-10.0); %Neutrophils 77.6 % (42.0-75.0); Hematocrit 43.4 % (42.0-52.0); Mean Corpuscular HGB CONC 32.3 g/dL (32.0-36.0); Mean Corpuscular Hemoglobin 26.8 pg (27.0-31.0); Platelet Count 209 10x3/uL (130-400); RBC Distribution Width 17.2 % (11.5-14.5); Red Blood Cell (RBC) Count 5.23 mill/uL (4.70-6.10); White Blood Cell (WBC) Count 11.5 10x3/uL (4.8-10.8)
[2023-02-16 11:09] LABS: Troponin I 0.013 ng/mL (< 0.028)
[2023-02-16 11:12] LABS: ALT (SGPT) 35 U/L (8-55); AST (SGOT) 23 U/L (5-34); Albumin 3.7 g/dL (3.5-5.0); Alkaline Phosphatase 138 U/L (40-110); Anion Gap 17 mmol/L (10-20); BUN (Urea Nitrogen) 34 mg/dL (8.4-25.7); Bilirubin, Total 0.6 mg/dL (0.2-1.2); Calc. Creatinine Clearance 0 mL/min (70-130); Calcium 9.3 mg/dL (7.8-10.44); Carbon Dioxide 24 mmol/L (22-29); Chloride 102 mmol/L (98-107); Estimated GFR 68; Globulin 2.7 g/dL (2.4-3.5); Glucose 168 mg/dL (70-105); Potassium 4.1 mmol/L (3.5-5.1); Protein, Total 6.4 g/dL (6.0-8.3); Sodium 139 mmol/L (136-145)
[2023-02-16] MEDS ORDERED: Bumetanide 1 MG/4 ML VIAL IVP SCH (11:15)
[2023-02-16] MEDS ORDERED: VANCOMYCIN 2 GRAM/500 ML BAG 2 GM in Premix Bag 1 BAG IVPB SCH (12:00)
[2023-02-16] MEDS ORDERED: diphenhydrAMINE 50 MG/ML VIAL ONE ×2 (12:42→12:43)
[2023-02-16] MEDS ORDERED: Iopamidol-370 76% 500 ML MDV (1 ML CHARGE) ONE (14:24)
[2023-02-16] MEDS ORDERED: Guaifenesin DM 100-10/5 ML UDCUP PO PRN (15:28)
[2023-02-16] MEDS ORDERED: Senokot S 8.6-50 MG TAB PO PRN (15:28)
[2023-02-16] MEDS ORDERED: Acetaminophen 325 MG TAB PO PRN (15:28)
[2023-02-16] MEDS ORDERED: Glucagon 1 MG/ML KIT IM PRN (15:34)
[2023-02-16] MEDS ORDERED: Dextrose 5% in Water 1,000 ML IV PRN (15:34)
[2023-02-16] MEDS ORDERED: Dextrose 50% Abboject 50 ML SYRINGE SLOW IVP PRN (15:34)
[2023-02-16 18:06] VITALS: BMI 52.9
[2023-02-16 18:53] LABS: Magnesium 1.5 mg/dL (1.6-2.6)
[2023-02-16] MEDS ORDERED: Apixaban 5 MG TAB PO SCH ×2 (21:00)
[2023-02-16] MEDS ORDERED: Insulin Glargine 30 UNITS/0.3 ML VIAL SC SCH (21:00)
[2023-02-16] MEDS: Carvedilol 25 MG TAB PO SCH (21:19)
[2023-02-16] MEDS: HumaLOG 300 UNITS/3 ML VIAL SC PRN (22:22)
[2023-02-16] MEDS: Clindamycin/D5W 900 MG in Premix Bag 1 BAG IVPB SCH (22:22)
[2023-02-17] MEDS: HYDROcodone/Acetaminophen 5/325 mg Tablet PO SCH ×2 (01:11→01:15)
[2023-02-17 05:03] LABS: #Basophils 0.1 thou/uL (0.0-0.2); #Eosinphils 0.4 thou/uL (0.0-0.7); #Monocytes 0.6 thou/uL (0.11-0.59); #Neutrophils 7.6 thou/uL (1.40-6.50); %Basophils 0.8 % (0.0-1.0); %Eosinophils 3.5 % (0.0-10.0); %Lymphocytes 14.9 % (21.0-51.0); %Monocytes 5.6 % (0.0-10.0); %Neutrophils 74.1 % (42.0-75.0); Hematocrit 42.2 % (42.0-52.0); Hemoglobin 13.4 g/dL (14.0-18.0); Mean Corpuscular HGB CONC 31.8 g/dL (32.0-36.0); Mean Corpuscular Hemoglobin 26.5 pg (27.0-31.0); Mean Corpuscular Volume 83.4 fl (78.0-98.0); Mean Platelet Volume 10.4 fL (7.4-10.4); Platelet Count 212 10x3/uL (130-400); RBC Distribution Width 17.4 % (11.5-14.5); Red Blood Cell (RBC) Count 5.06 mill/uL (4.70-6.10); White Blood Cell (WBC) Count 10.2 10x3/uL (4.8-10.8)
[2023-02-17 05:24] LABS: Anion Gap 14 mmol/L (10-20); BUN (Urea Nitrogen) 32 mg/dL (8.4-25.7); Calc. Creatinine Clearance 149 mL/min (70-130); Calcium 9.1 mg/dL (7.8-10.44); Carbon Dioxide 25 mmol/L (22-29); Chloride 101 mmol/L (98-107); Estimated GFR 63; Glucose 187 mg/dL (70-105); Potassium 3.9 mmol/L (3.5-5.1); Sodium 136 mmol/L (136-145)
[2023-02-17] MEDS: Furosemide 100 MG/10 ML VIAL SLOW IVP SCH ×2 (06:20→14:46)
[2023-02-17] MEDS: Clindamycin/D5W 900 MG in Premix Bag 1 BAG IVPB SCH ×3 (06:23→22:46)
[2023-02-17] MEDS: Aspirin 81 mg Enteric Coated Tablet PO SCH (08:23)
[2023-02-17] MEDS: Carvedilol 25 MG TAB PO SCH ×2 (08:23→22:06)
[2023-02-17] MEDS: dilTIAZem CD 180 MG CAP PO SCH ×2 (10:50→15:01)
[2023-02-17] MEDS ORDERED: Rosuvastatin 20 MG TAB PO SCH (21:00)
[2023-02-17] MEDS: HumaLOG 300 UNITS/3 ML VIAL SC PRN (22:07)
[2023-02-18] MEDS: Furosemide 100 MG/10 ML VIAL SLOW IVP SCH ×2 (05:40→15:24)
[2023-02-18] MEDS: Clindamycin/D5W 900 MG in Premix Bag 1 BAG IVPB SCH ×2 (05:40→15:24)
[2023-02-18] MEDS: dilTIAZem CD 180 MG CAP PO SCH (09:20)
[2023-02-18] MEDS: Aspirin 81 mg Enteric Coated Tablet PO SCH (09:20)
[2023-02-18] MEDS: Rivaroxaban 15 MG TAB PO SCH ×2 (09:20→17:37)
[2023-02-18] MEDS: Carvedilol 25 MG TAB PO SCH (09:20)
[2023-02-18 15:22] VITALS: BP 115/63; TEMP 98.7
[2023-02-18] MEDS: HumaLOG 300 UNITS/3 ML VIAL SC PRN (17:21)
== END 2023-02-18 18:25 | disposition home or self-care (01) | DRG 299 ==
LOC: ERS 09:52 → 2NO 15:15
PROVIDERS: ADMIT Hospitalist; ATTEND Internal Medicine
DX: I82.411 Acute embolism and thrombosis of right femoral vein (principal); I50.33 Acute on chronic diastolic (congestive) heart failure; L03.115 Cellulitis of right lower limb; I48.20 Chronic atrial fibrillation, unspecified; I13.0 Hypertensive heart and chronic kidney disease with heart failure and stage 1 through stage 4 chronic kidney disease, or unspecified chronic kidney disease; Z68.44 Body mass index [BMI] 60.0-69.9, adult; E11.65 Type 2 diabetes mellitus with hyperglycemia; E11.22 Type 2 diabetes mellitus with diabetic chronic kidney disease; N18.30 Chronic kidney disease, stage 3 unspecified; G47.33 Obstructive sleep apnea (adult) (pediatric); E11.51 Type 2 diabetes mellitus with diabetic peripheral angiopathy without gangrene; E66.01 Morbid (severe) obesity due to excess calories; Z79.01 Long term (current) use of anticoagulants; Z89.511 Acquired absence of right leg below knee; Z79.4 Long term (current) use of insulin; Z88.6 Allergy status to analgesic agent; Z88.8 Allergy status to other drugs, medicaments and biological substances; Z88.1 Allergy status to other antibiotic agents; Z79.82 Long term (current) use of aspirin; Z79.899 Other long term (current) drug therapy; Z83.3 Family history of diabetes mellitus
CPT/HCPCS: 36415; 36416; 71045; 71275; 74018; 80048; 80053; 83605; 83735; 83880; 84443; 84484; 85025; 87040; 93005; 93970; 96361; 96365; 96366; 96375; 97139; J1200; J1650; J1815; J1940; J3370; J3490; Q9967

== ENCOUNTER 2023-03-26 08:13 | Emergency (ER) | payer MEDICARE, OTHER | END 2023-03-26 09:27 | disposition home or self-care (01) | LOC: ERS 08:13 | DX: L91.8 Other hypertrophic disorders of the skin (principal); T88.9XXA Complication of surgical and medical care, unspecified, initial encounter; I11.0 Hypertensive heart disease with heart failure; I50.9 Heart failure, unspecified; E66.9 Obesity, unspecified; E11.9 Type 2 diabetes mellitus without complications; Z87.891 Personal history of nicotine dependence; Z79.82 Long term (current) use of aspirin; Z86.718 Personal history of other venous thrombosis and embolism; Z79.899 Other long term (current) drug therapy; Z79.4 Long term (current) use of insulin | CPT/HCPCS: 12001 ==

== ENCOUNTER 2024-03-04 16:58 | Inpatient (IN) | payer OTHER ==
[~2024-03-04 16:58] MED LIST: Iopamidol-370 76% 500 ML MDV (1 ML CHARGE) ONE
[2024-03-04 17:50] LABS: #Basophils 0.08 10x3/uL (0.0-0.2); %Basophils 0.6 % (0.0-1.0); %Eosinophils 1.5 % (0.0-10.0); %Lymphocytes 10.9 % (21.0-51.0); %Monocytes 4.6 % (0.0-10.0); %Neutrophils 81.5 % (42.0-75.0); Hematocrit 42.1 % (42.0-52.0); Hemoglobin 12.4 g/dL (14.0-18.0); Mean Corpuscular HGB CONC 29.5 g/dL (32.0-36.0); Mean Corpuscular Hemoglobin 20.9 pg (27.0-31.0); Mean Platelet Volume 9.8 fL (7.4-10.4); Platelet Count 270 10x3/uL (130-400); RBC Distribution Width 21.3 % (11.5-14.5); Red Blood Cell (RBC) Count 5.93 mill/uL (4.70-6.10)
[2024-03-04 17:57] LABS: ALT (SGPT) 12 U/L (8-55); AST (SGOT) 14 U/L (5-34); Albumin 3.6 g/dL (3.5-5.0); Alkaline Phosphatase 84 U/L (40-110); Anion Gap 17 mmol/L (10-20); BUN (Urea Nitrogen) 29 mg/dL (8.4-25.7); Bilirubin, Total 1.1 mg/dL (0.2-1.2); Calc. Creatinine Clearance 0 mL/min (70-130); Calcium 9.2 mg/dL (7.8-10.44); Carbon Dioxide 26 mmol/L (22-29); Chloride 96 mmol/L (98-107); Estimated GFR 53; Globulin 3.7 g/dL (2.4-3.5); Glucose 334 mg/dL (70-105); Potassium 3.4 mmol/L (3.5-5.1); Protein, Total 7.3 g/dL (6.0-8.3); Sodium 136 mmol/L (136-145)
[2024-03-04] MEDS ORDERED: Nitroglycerin 2% Ointment 1 INCH/1 GM Packet ONE (17:57)
[2024-03-04] MEDS ORDERED: Furosemide 40 MG (4 mL) VIAL ONE (17:58)
[2024-03-04 18:01] LABS: Troponin I 0.039 ng/mL (< 0.028)
[2024-03-04 18:11] LABS: Elliptocytes SLIGHT = 2-5 cells HPF (0-1); Microcytosis SLIGHT = 6-15 cells HPF (0-5); Platelet Adequacy Comment Platelets Normal; Polychromasia SLIGHT = 2-3 cells HPF (0-2)
[2024-03-04] MEDS ORDERED: Ondansetron PF 4 MG/2 ML Vial IVP PRN (20:22)
[2024-03-04] MEDS ORDERED: Acetaminophen 650 MG Suppository PR PRN (20:22)
[2024-03-04 22:02] VITALS: BMI 56.5
[2024-03-04] MEDS: Potassium Chloride 20 MEQ TAB PO SCH (22:06)
[2024-03-04] MEDS: Carvedilol 6.25 MG TAB PO SCH (22:07)
[2024-03-04] MEDS ORDERED: Dextrose 5% in Water 1,000 ML IV PRN (22:58)
[2024-03-04] MEDS ORDERED: Dextrose 50% Abboject 50 ML SYRINGE SLOW IVP PRN (22:58)
[2024-03-04] MEDS ORDERED: Glucagon 1 MG/ML KIT IM PRN (22:58)
[2024-03-04] MEDS: Insulin Lispro 100 UNIT/ML 10 ML VIAL SC PRN (23:12)
[2024-03-04 23:57] LABS: Anion Gap 16 mmol/L (10-20); BUN (Urea Nitrogen) 27 mg/dL (8.4-25.7); Calc. Creatinine Clearance 151 mL/min (70-130); Calcium 9.1 mg/dL (7.8-10.44); Carbon Dioxide 25 mmol/L (22-29); Chloride 100 mmol/L (98-107); Estimated GFR 60; Glucose 250 mg/dL (70-105); Magnesium 2.7 mg/dL (1.6-2.6); Potassium 3.4 mmol/L (3.5-5.1); Sodium 138 mmol/L (136-145)
[2024-03-05 00:05] LABS: Troponin I 0.046 ng/mL (< 0.028)
[2024-03-05] MEDS: Furosemide 40 MG (4 mL) VIAL SLOW IVP SCH (05:39)
[2024-03-05 06:19] LABS: %Basophils 0.8 % (0.0-1.0); %Eosinophils 1.7 % (0.0-10.0); %Lymphocytes 11.8 % (21.0-51.0); %Monocytes 5.3 % (0.0-10.0); %Neutrophils 79.7 % (42.0-75.0); Hematocrit 39.7 % (42.0-52.0); Hemoglobin 11.2 g/dL (14.0-18.0); Mean Corpuscular HGB CONC 28.2 g/dL (32.0-36.0); Mean Corpuscular Volume 74.5 fL (78.0-98.0); Mean Platelet Volume 10.3 fL (7.4-10.4); Platelet Count 254 10x3/uL (130-400); RBC Distribution Width 21.3 % (11.5-14.5); Red Blood Cell (RBC) Count 5.33 mill/uL (4.70-6.10)
[2024-03-05 06:21] LABS: INR-International Normal Ratio 1.5
[2024-03-05 06:23] LABS: PTT 56.6 sec (22.9-36.1)
[2024-03-05 06:43] LABS: Anisocytosis SLIGHT = 6-15 cells HPF (0-5); Hypochromia SLIGHT = 6-15 cells HPF (0-5); Microcytosis SLIGHT = 6-15 cells HPF (0-5); Platelet Adequacy Comment Platelets Normal; Polychromasia SLIGHT = 2-3 cells HPF (0-2)
[2024-03-05 06:50] LABS: Anion Gap 12 mmol/L (10-20); BUN (Urea Nitrogen) 27 mg/dL (8.4-25.7); Calc. Creatinine Clearance 155 mL/min (70-130); Carbon Dioxide 30 mmol/L (22-29); Chloride 99 mmol/L (98-107); Estimated GFR 61; Glucose 195 mg/dL (70-105); Magnesium 2.7 mg/dL (1.6-2.6); Potassium 3.6 mmol/L (3.5-5.1); Sodium 137 mmol/L (136-145)
[2024-03-05 07:02] LABS: Troponin I 0.044 ng/mL (< 0.028)
[2024-03-05] MEDS: Carvedilol 6.25 MG TAB PO SCH ×2 (09:23→11:09)
[2024-03-05] MEDS: Insulin Glargine 30 UNITS/0.3 ML VIAL SC SCH (15:50)
[2024-03-05] MEDS: Carvedilol 25 MG TAB PO SCH (17:21)
[2024-03-06 06:14] LABS: ALT (SGPT) 9 U/L (8-55); AST (SGOT) 12 U/L (5-34); Albumin 3.3 g/dL (3.5-5.0); Alkaline Phosphatase 76 U/L (40-110); Anion Gap 16 mmol/L (10-20); BUN (Urea Nitrogen) 35 mg/dL (8.4-25.7); Bilirubin, Total 1.6 mg/dL (0.2-1.2); Calc. Creatinine Clearance 142 mL/min (70-130); Calcium 9.3 mg/dL (7.8-10.44); Carbon Dioxide 28 mmol/L (22-29); Chloride 96 mmol/L (98-107); Estimated GFR 57; Globulin 3.5 g/dL (2.4-3.5); Glucose 247 mg/dL (70-105); Magnesium 2.1 mg/dL (1.6-2.6); Potassium 3.8 mmol/L (3.5-5.1); Protein, Total 6.8 g/dL (6.0-8.3); Sodium 136 mmol/L (136-145)
[2024-03-06 06:32] LABS: #Basophils 0.08 10x3/uL (0.0-0.2); %Basophils 0.6 % (0.0-1.0); %Eosinophils 2.5 % (0.0-10.0); %Lymphocytes 13.4 % (21.0-51.0); %Monocytes 6.6 % (0.0-10.0); %Neutrophils 76.3 % (42.0-75.0); Hematocrit 41.9 % (42.0-52.0); Mean Corpuscular HGB CONC 28.6 g/dL (32.0-36.0); Mean Corpuscular Hemoglobin 20.9 pg (27.0-31.0); Mean Platelet Volume 9.9 fL (7.4-10.4); Platelet Count 256 10x3/uL (130-400); RBC Distribution Width 21.4 % (11.5-14.5); Red Blood Cell (RBC) Count 5.74 mill/uL (4.70-6.10)
[2024-03-06] MEDS: Acetaminophen 325 MG TAB PO PRN (09:39)
[2024-03-07 06:03] LABS: #Basophils 0.08 10x3/uL (0.0-0.2); %Basophils 0.7 % (0.0-1.0); %Eosinophils 3.3 % (0.0-10.0); %Lymphocytes 14.4 % (21.0-51.0); %Monocytes 7.8 % (0.0-10.0); %Neutrophils 72.9 % (42.0-75.0); Hematocrit 43.5 % (42.0-52.0); Hemoglobin 12.6 g/dL (14.0-18.0); Mean Corpuscular Hemoglobin 20.8 pg (27.0-31.0); Mean Corpuscular Volume 71.8 fL (78.0-98.0); Mean Platelet Volume 9.7 fL (7.4-10.4); Platelet Count 251 10x3/uL (130-400); RBC Distribution Width 21.2 % (11.5-14.5); Red Blood Cell (RBC) Count 6.06 mill/uL (4.70-6.10)
[2024-03-07 06:32] LABS: Anisocytosis SLIGHT = 6-15 cells HPF (0-5); Microcytosis SLIGHT = 6-15 cells HPF (0-5); Platelet Adequacy Comment Platelets Normal; Polychromasia MODERATE = 3-4 cells HPF (0-2)
[2024-03-07 06:34] LABS: ALT (SGPT) 11 U/L (8-55); AST (SGOT) 13 U/L (5-34); Albumin 3.4 g/dL (3.5-5.0); Alkaline Phosphatase 75 U/L (40-110); Anion Gap 14 mmol/L (10-20); BUN (Urea Nitrogen) 45 mg/dL (8.4-25.7); Bilirubin, Total 1.3 mg/dL (0.2-1.2); Calc. Creatinine Clearance 149 mL/min (70-130); Calcium 9.5 mg/dL (7.8-10.44); Carbon Dioxide 33 mmol/L (22-29); Chloride 94 mmol/L (98-107); Estimated GFR 60; Globulin 3.6 g/dL (2.4-3.5); Glucose 134 mg/dL (70-105); Magnesium 1.8 mg/dL (1.6-2.6); Potassium 3.2 mmol/L (3.5-5.1); Sodium 138 mmol/L (136-145)
[2024-03-07] MEDS ORDERED: Electrolyte Replacement Protocol 1 EACH FS ONE (09:16)
[2024-03-07] MEDS ORDERED: Electrolyte Replacement Protocol FS PRN (09:30)
[2024-03-07] MEDS: Potassium Chloride 20 MEQ TAB PO SCH (10:18)
[2024-03-07] MEDS: Magnesium 2 GM/50 ML(in water) 2 GM in Premix 1 BAG IVPB SCH (10:23)
[2024-03-07] MEDS: traZODone HCl 50 MG TAB PO SCH (20:04)
[2024-03-07] MEDS: Ranolazine ER 500 MG TAB PO SCH (20:04)
[2024-03-08 05:48] LABS: Anion Gap 16 mmol/L (10-20); BUN (Urea Nitrogen) 49 mg/dL (8.4-25.7); Calc. Creatinine Clearance 137 mL/min (70-130); Calcium 9.4 mg/dL (7.8-10.44); Carbon Dioxide 31 mmol/L (22-29); Chloride 95 mmol/L (98-107); Estimated GFR 54; Glucose 148 mg/dL (70-105); Sodium 138 mmol/L (136-145)
[2024-03-08 05:55] LABS: #Basophils 0.09 10x3/uL (0.0-0.2); %Basophils 0.8 % (0.0-1.0); %Eosinophils 2.4 % (0.0-10.0); %Lymphocytes 13.8 % (21.0-51.0); %Monocytes 7.6 % (0.0-10.0); %Neutrophils 74.7 % (42.0-75.0); Hematocrit 43.5 % (42.0-52.0); Hemoglobin 12.7 g/dL (14.0-18.0); Mean Corpuscular HGB CONC 29.2 g/dL (32.0-36.0); Mean Corpuscular Volume 71.8 fL (78.0-98.0); Platelet Count 264 10x3/uL (130-400); RBC Distribution Width 21.4 % (11.5-14.5); Red Blood Cell (RBC) Count 6.06 mill/uL (4.70-6.10)
[2024-03-08] MEDS: dilTIAZem CD 180 MG CAP PO SCH (08:48)
[2024-03-08] MEDS: Ferrous Sulfate 325 MG TAB PO SCH (08:48)
[2024-03-08 09:02] LABS: Magnesium 2.1 mg/dL (1.6-2.6)
[2024-03-08 10:21] VITALS: BP 119/72; TEMP 98.1
== END 2024-03-08 11:00 | disposition home or self-care (01) | DRG 291 ==
LOC: ERS 16:58 → 2NO 20:13
PROVIDERS: ADMIT Internal Medicine; ATTEND Internal Medicine
DX: I13.0 Hypertensive heart and chronic kidney disease with heart failure and stage 1 through stage 4 chronic kidney disease, or unspecified chronic kidney disease (principal); I50.33 Acute on chronic diastolic (congestive) heart failure; J96.01 Acute respiratory failure with hypoxia; I48.20 Chronic atrial fibrillation, unspecified; L76.32 Postprocedural hematoma of skin and subcutaneous tissue following other procedure; Z68.43 Body mass index [BMI] 50.0-59.9, adult; E11.22 Type 2 diabetes mellitus with diabetic chronic kidney disease; G47.33 Obstructive sleep apnea (adult) (pediatric); N18.30 Chronic kidney disease, stage 3 unspecified; Z88.5 Allergy status to narcotic agent; Z88.8 Allergy status to other drugs, medicaments and biological substances; Z88.1 Allergy status to other antibiotic agents; Z86.718 Personal history of other venous thrombosis and embolism; Z87.891 Personal history of nicotine dependence; Z89.611 Acquired absence of right leg above knee; E66.01 Morbid (severe) obesity due to excess calories; Z79.85 Long-term (current) use of injectable non-insulin antidiabetic drugs; Z79.4 Long term (current) use of insulin; Z79.82 Long term (current) use of aspirin; Z79.899 Other long term (current) drug therapy
CPT/HCPCS: 36415; 71045; 71275; 80048; 80053; 83735; 83880; 84484; 85025; 85610; 85730; 93005; 96374; J1815; J1940; J3475; Q9967

== ENCOUNTER 2024-05-04 20:59 | Inpatient (IN) | payer OTHER, MEDICAID ==
[2024-05-04 21:42] LABS: #Basophils 0.06 10x3/uL (0.0-0.2); %Basophils 0.4 % (0.0-1.0); %Eosinophils 0.2 % (0.0-10.0); %Lymphocytes 7.8 % (21.0-51.0); %Monocytes 3.7 % (0.0-10.0); %Neutrophils 87.2 % (42.0-75.0); Hematocrit 25.6 % (42.0-52.0); Hemoglobin 7.1 g/dL (14.0-18.0); Mean Corpuscular HGB CONC 27.7 g/dL (32.0-36.0); Mean Corpuscular Hemoglobin 18.5 pg (27.0-31.0); Mean Corpuscular Volume 66.7 fL (78.0-98.0); Mean Platelet Volume 10.1 fL (7.4-10.4); Platelet Count 314 10x3/uL (130-400); RBC Distribution Width 20.2 % (11.5-14.5); Red Blood Cell (RBC) Count 3.84 mill/uL (4.70-6.10)
[2024-05-04 22:01] LABS: INR-International Normal Ratio 1.2; PTT 41.6 sec (22.9-36.1); Prothrombin Time 15.7 sec (12.0-14.7)
[2024-05-04 22:02] LABS: Anisocytosis SLIGHT = 6-15 cells HPF (0-5); Hypochromia SLIGHT = 6-15 cells HPF (0-5); Microcytosis SLIGHT = 6-15 cells HPF (0-5); Platelet Adequacy Comment Platelets Normal; Polychromasia SLIGHT = 2-3 cells HPF (0-2); Tear Drops SLIGHT = 2-5 cells HPF (0-1)
[2024-05-04 22:14] LABS: ALT (SGPT) 6 U/L (8-55); AST (SGOT) 12 U/L (5-34); Albumin 3.2 g/dL (3.4-4.8); Alkaline Phosphatase 56 U/L (40-110); Anion Gap 26 mmol/L (10-20); BUN (Urea Nitrogen) 77 mg/dL (8.4-25.7); Bilirubin, Total 1.2 mg/dL (0.2-1.2); Calc. Creatinine Clearance 0 mL/min (70-130); Calcium 8.6 mg/dL (7.8-10.44); Carbon Dioxide 31 mmol/L (23-31); Chloride 84 mmol/L (98-107); Estimated GFR 28; Globulin 3.3 g/dL (2.4-3.5); Glucose 421 mg/dL (80-115); Potassium 2.7 mmol/L (3.5-5.1); Protein, Total 6.5 g/dL (5.8-8.1); Sodium 138 mmol/L (136-145)
[2024-05-04 22:36] LABS: Troponin I 0.515 ng/mL (< 0.028)
[2024-05-04] MEDS ORDERED: Potassium Chloride 20 MEQ TAB ONE (23:10)
[2024-05-04] MEDS ORDERED: Aspirin Chewable 81 MG TAB ONE (23:10)
[2024-05-04] MEDS ORDERED: Diltiazem HCl/D5W 0 ML ONE (23:11)
[2024-05-04] MEDS ORDERED: Dextrose 50% Abboject 50 ML SYRINGE SLOW IVP PRN (23:49)
[2024-05-04] MEDS ORDERED: Insulin Lispro 100 UNIT/ML 10 ML VIAL SC PRN (23:49)
[2024-05-04] MEDS ORDERED: Glucagon 1 MG/ML KIT IM PRN (23:49)
[2024-05-04] MEDS ORDERED: Dextrose 5% in Water 1,000 ML IV PRN (23:49)
[2024-05-05] MEDS ORDERED: Ipratropium/Albuterol 3 ML NEB NEB PRN (00:18)
[2024-05-05] MEDS ORDERED: Polyethylene Glycol 3350 17 GM Packet PO PRN (00:19)
[2024-05-05] MEDS ORDERED: Senokot S 8.6-50 MG TAB PO PRN (00:41)
[2024-05-05] MEDS ORDERED: Calcium Carbonate 500 MG ChewTAB PO PRN (00:41)
[2024-05-05] MEDS ORDERED: Acetaminophen 325 MG TAB PO PRN (00:41)
[2024-05-05] MEDS ORDERED: Ondansetron PF 4 MG/2 ML Vial IVP PRN (00:41)
[2024-05-05] MEDS ORDERED: Pantoprazole 40 MG VIAL ONE (00:49)
[2024-05-05] MEDS ORDERED: Digoxin 0.5 MG/2 ML AMP ONE (00:49)
[2024-05-05 01:08] LABS: Troponin I 0.947 ng/mL (< 0.028)
[2024-05-05] MEDS: Pantoprazole 40 MG VIAL IVP SCH (01:21)
[2024-05-05 01:53] LABS: Glucose POC Confirmation 238 mg/dL (83-110)
[2024-05-05] MEDS: Digoxin 0.5 MG/2 ML AMP SLOW IVP SCH (02:17)
[2024-05-05] MEDS: Albumin 25% 25 GM (100 mL) BOT IVPB SCH (02:17)
[2024-05-05] MEDS: Furosemide 40 MG (4 mL) VIAL SLOW IVP SCH (02:30)
[2024-05-05 02:38] LABS: Actual Bicarbonate (HCO3v) 36.2 mEq/L (22-28); Base Excess 13.2 mEq/L (-2.0 to +3.0); Calcium, Ionized (venous) 0.96 mmol/L (1.16-1.32); Chloride (VBG) 85 mmol/L (98-106); Hematocrit-VBG 27 % (42.0-52.0); Hemoglobin (Hb) 9.2 g/dL (13.1-17.2); Sodium 139 mmol/L (133-146); pH (venous) 7.582 (7.32-7.43)
[2024-05-05 02:40] LABS: Potassium (VBG) 2.54 mmol/L (3.70-5.30)
[2024-05-05 03:42] LABS: #Basophils 0.07 10x3/uL (0.0-0.2); %Basophils 0.4 % (0.0-1.0); %Eosinophils 0.2 % (0.0-10.0); %Lymphocytes 8.5 % (21.0-51.0); %Monocytes 4.5 % (0.0-10.0); %Neutrophils 85.5 % (42.0-75.0); Hematocrit 28.3 % (42.0-52.0); Hemoglobin 7.8 g/dL (14.0-18.0); Mean Corpuscular HGB CONC 27.6 g/dL (32.0-36.0); Mean Corpuscular Hemoglobin 18.7 pg (27.0-31.0); Mean Corpuscular Volume 67.9 fL (78.0-98.0); Mean Platelet Volume 9.9 fL (7.4-10.4); Platelet Count 331 10x3/uL (130-400); RBC Distribution Width 20.8 % (11.5-14.5); Red Blood Cell (RBC) Count 4.17 mill/uL (4.70-6.10)
[2024-05-05 03:44] LABS: ALT (SGPT) 7 U/L (8-55); AST (SGOT) 22 U/L (5-34); Albumin 3.4 g/dL (3.4-4.8); Alkaline Phosphatase 62 U/L (40-110); Anion Gap 20 mmol/L (10-20); BUN (Urea Nitrogen) 81 mg/dL (8.4-25.7); Bilirubin, Total 1.3 mg/dL (0.2-1.2); Calc. Creatinine Clearance 0 mL/min (70-130); Calcium 9.3 mg/dL (7.8-10.44); Carbon Dioxide 37 mmol/L (23-31); Chloride 85 mmol/L (98-107); Estimated GFR 29; Globulin 3.9 g/dL (2.4-3.5); Glucose 133 mg/dL (80-115); Potassium 2.4 mmol/L (3.5-5.1); Protein, Total 7.3 g/dL (5.8-8.1); Sodium 140 mmol/L (136-145); Troponin I 2.327 ng/mL (< 0.028)
[2024-05-05] MEDS: Potassium Chloride 20 MEQ in Premix 1 BAG IVPB SCH ×2 (04:10→20:23)
[2024-05-05] MEDS ORDERED: Insulin Lispro 100 UNIT/ML 10 ML VIAL SC PRN (04:57)
[2024-05-05 05:06] LABS: Hematocrit 26.5 % (42.0-52.0); Hemoglobin 7.4 g/dL (14.0-18.0)
[2024-05-05 05:45] LABS: Lactic Acid 2.69 mmol/L (0.5-2.2)
[2024-05-05] MEDS ORDERED: Furosemide 40 MG (4 mL) VIAL SLOW IVP SCH (06:00)
[2024-05-05 06:02] LABS: Troponin I 4.658 ng/mL (< 0.028)
[2024-05-05 06:06] LABS: Anion Gap 19 mmol/L (10-20); BUN (Urea Nitrogen) 82 mg/dL (8.4-25.7); Calc. Creatinine Clearance 75 mL/min (70-130); Calcium 8.8 mg/dL (7.8-10.44); Carbon Dioxide 38 mmol/L (23-31); Chloride 85 mmol/L (98-107); Estimated GFR 28; Glucose 104 mg/dL (80-115); Potassium 3.1 mmol/L (3.5-5.1); Sodium 139 mmol/L (136-145)
[2024-05-05] MEDS: Propafenone HCl 150 MG TAB PO SCH (06:36)
[2024-05-05 07:44] LABS: Influenza A by NAA Not Detected (NotDetected); Influenza B by NAA Not Detected (NotDetected); RSV by NAA Not Detected (NotDetected); SARS-CoV-2 NAA Rapid Test Not Detected (NotDetected)
[2024-05-05] MEDS ORDERED: Insulin Glargine 30 UNITS/0.3 ML VIAL SC SCH (09:00)
[2024-05-05] MEDS: Ranolazine ER 500 MG TAB PO SCH (09:52)
[2024-05-05] MEDS: acetaZOLAMIDE Sodium 500 mg Vial IVP SCH (09:52)
[2024-05-05] MEDS: Rosuvastatin 20 MG TAB PO SCH (09:52)
[2024-05-05] MEDS: Dapagliflozin Propanediol 10 MG TAB PO SCH (09:52)
[2024-05-05] MEDS: Sterile Water 10 ML ONE (09:52)
[2024-05-05] MEDS: Diltiazem HCl/D5W 125 MG in Premix 1 BAG IVPB SCH (09:54)
[2024-05-05] MEDS: Pantoprazole DR 40 MG TAB PO SCH (20:22)
[2024-05-05] MEDS: Insulin Lispro 100 UNIT/ML 10 ML VIAL SC PRN (20:23)
[2024-05-05] MEDS: Potassium Chloride 20 MEQ TAB PO SCH (22:13)
[2024-05-05] MEDS: traZODone HCl 50 MG TAB PO SCH (22:13)
[2024-05-06 04:48] LABS: Digoxin Less than 0.19 ng/mL (0.8-2.0)
[2024-05-06 04:51] LABS: #Basophils 0.07 10x3/uL (0.0-0.2); %Basophils 0.4 % (0.0-1.0); %Eosinophils 0.9 % (0.0-10.0); %Lymphocytes 9.3 % (21.0-51.0); %Neutrophils 84.6 % (42.0-75.0); Hematocrit 27.1 % (42.0-52.0); Hemoglobin 7.8 g/dL (14.0-18.0); Mean Corpuscular HGB CONC 28.8 g/dL (32.0-36.0); Mean Corpuscular Hemoglobin 20.2 pg (27.0-31.0); Mean Corpuscular Volume 70.2 fL (78.0-98.0); Mean Platelet Volume 10.6 fL (7.4-10.4); Platelet Count 290 10x3/uL (130-400); RBC Distribution Width 22.2 % (11.5-14.5); Red Blood Cell (RBC) Count 3.86 mill/uL (4.70-6.10)
[2024-05-06 05:06] LABS: ALT (SGPT) 11 U/L (8-55); AST (SGOT) 35 U/L (5-34); Albumin 3.1 g/dL (3.4-4.8); Alkaline Phosphatase 65 U/L (40-110); Anion Gap 18 mmol/L (10-20); BUN (Urea Nitrogen) 83 mg/dL (8.4-25.7); Bilirubin, Total 2.3 mg/dL (0.2-1.2); Calc. Creatinine Clearance 67 mL/min (70-130); Calcium 9.1 mg/dL (7.8-10.44); Carbon Dioxide 36 mmol/L (23-31); Chloride 84 mmol/L (98-107); Estimated GFR 25; Globulin 3.3 g/dL (2.4-3.5); Glucose 241 mg/dL (80-115); Magnesium 2.9 mg/dL (1.6-2.6); Potassium 3.5 mmol/L (3.5-5.1); Protein, Total 6.4 g/dL (5.8-8.1); Sodium 134 mmol/L (136-145)
[2024-05-06 06:06] VITALS: BMI 42.2
[2024-05-06] MEDS: Insulin Glargine 30 UNITS/0.3 ML VIAL SC SCH ×3 (09:18→22:44)
[2024-05-06] MEDS: Potassium Chloride 20 MEQ TAB PO SCH (09:18)
[2024-05-06] MEDS: Insulin Lispro 100 UNIT/ML 10 ML VIAL SC PRN (13:24)
[2024-05-06 20:00] LABS: Troponin I 6.718 ng/mL (< 0.028)
[2024-05-06] MEDS ORDERED: Insulin Glargine 30 UNITS/0.3 ML VIAL SC SCH (21:00)
[2024-05-06] MEDS: Metoprolol Tartrate 25 MG TAB PO SCH (22:44)
[2024-05-07 06:26] LABS: ALT (SGPT) 17 U/L (8-55); AST (SGOT) 31 U/L (5-34); Alkaline Phosphatase 80 U/L (40-110); Anion Gap 17 mmol/L (10-20); BUN (Urea Nitrogen) 91 mg/dL (8.4-25.7); Bilirubin, Total 2.5 mg/dL (0.2-1.2); Calc. Creatinine Clearance 46 mL/min (70-130); Calcium 8.8 mg/dL (7.8-10.44); Carbon Dioxide 32 mmol/L (23-31); Chloride 85 mmol/L (98-107); Estimated GFR 21; Globulin 3.5 g/dL (2.4-3.5); Glucose 233 mg/dL (80-115); Protein, Total 6.5 g/dL (5.8-8.1); Sodium 130 mmol/L (136-145)
[2024-05-07 06:34] LABS: Troponin I 6.792 ng/mL (< 0.028)
[2024-05-07] MEDS ORDERED: Polyethylene Glycol 3350 17 GM Packet PO PRN (15:45)
[2024-05-07] MEDS ORDERED: Amiodarone 450 MG in Dextrose 5% in Water 250 ML IVPB SCH (16:30)
[2024-05-07] MEDS ORDERED: Amiodarone 150 MG, Admixture Fee 1 EACH in Dextrose 5% in Water 100 ML IVPB SCH (16:45)
[2024-05-07] MEDS ORDERED: Amiodarone 450 MG, Admixture Fee 1 EACH in Dextrose 5% in Water 250 ML IVPB SCH (16:45)
[2024-05-07] MEDS: Amiodarone 450 MG in Dextrose 5% in Water 250 ML IVPB SCH (18:22)
[2024-05-07] MEDS: Senokot S 8.6-50 MG TAB PO SCH (20:21)
[2024-05-07] MEDS: Albumin 25% 25 GM (100 mL) BOT IVPB SCH (21:41)
[2024-05-08 05:36] LABS: ALT (SGPT) 75 U/L (8-55); AST (SGOT) 114 U/L (5-34); Albumin 3.4 g/dL (3.4-4.8); Alkaline Phosphatase 95 U/L (40-110); Anion Gap 20 mmol/L (10-20); BUN (Urea Nitrogen) 96 mg/dL (8.4-25.7); Bilirubin, Total 3.2 mg/dL (0.2-1.2); Calc. Creatinine Clearance 48 mL/min (70-130); Carbon Dioxide 28 mmol/L (23-31); Chloride 84 mmol/L (98-107); Estimated GFR 22; Globulin 3.2 g/dL (2.4-3.5); Glucose 151 mg/dL (80-115); Potassium 3.1 mmol/L (3.5-5.1); Protein, Total 6.6 g/dL (5.8-8.1); Sodium 129 mmol/L (136-145)
[2024-05-08 05:40] LABS: #Basophils 0.05 10x3/uL (0.0-0.2); %Basophils 0.4 % (0.0-1.0); %Eosinophils 1.6 % (0.0-10.0); %Lymphocytes 10.2 % (21.0-51.0); %Monocytes 4.3 % (0.0-10.0); %Neutrophils 82.8 % (42.0-75.0); Hematocrit 24.9 % (42.0-52.0); Hemoglobin 7.1 g/dL (14.0-18.0); Mean Corpuscular HGB CONC 28.5 g/dL (32.0-36.0); Mean Corpuscular Hemoglobin 19.8 pg (27.0-31.0); Mean Corpuscular Volume 69.4 fL (78.0-98.0); Mean Platelet Volume 10.7 fL (7.4-10.4); Platelet Count 271 10x3/uL (130-400); RBC Distribution Width 23.9 % (11.5-14.5); Red Blood Cell (RBC) Count 3.59 mill/uL (4.70-6.10)
[2024-05-08] MEDS: Insulin Glargine 30 UNITS/0.3 ML VIAL SC SCH (09:11)
[2024-05-08] MEDS: Polyethylene Glycol 3350 17 GM Packet PO SCH (22:06)
[2024-05-09 04:44] LABS: #Basophils 0.05 10x3/uL (0.0-0.2); %Basophils 0.4 % (0.0-1.0); %Eosinophils 1.6 % (0.0-10.0); %Monocytes 5.2 % (0.0-10.0); %Neutrophils 82.1 % (42.0-75.0); Hematocrit 26.3 % (42.0-52.0); Hemoglobin 7.5 g/dL (14.0-18.0); Mean Corpuscular HGB CONC 28.5 g/dL (32.0-36.0); Mean Corpuscular Hemoglobin 20.2 pg (27.0-31.0); Mean Corpuscular Volume 70.9 fL (78.0-98.0); Mean Platelet Volume 10.2 fL (7.4-10.4); Platelet Count 256 10x3/uL (130-400); RBC Distribution Width 23.8 % (11.5-14.5); Red Blood Cell (RBC) Count 3.71 mill/uL (4.70-6.10)
[2024-05-09 04:46] LABS: Anion Gap 20 mmol/L (10-20); BUN (Urea Nitrogen) 103 mg/dL (8.4-25.7); Calc. Creatinine Clearance 54 mL/min (70-130); Calcium 9.1 mg/dL (7.8-10.44); Carbon Dioxide 27 mmol/L (23-31); Chloride 87 mmol/L (98-107); Estimated GFR 19; Glucose 119 mg/dL (80-115); Sodium 131 mmol/L (136-145)
[2024-05-09] MEDS: Potassium Chloride 20 MEQ TAB PO SCH ×2 (12:53→16:27)
[2024-05-09 15:39] VITALS: BMI 52.7
[2024-05-10 05:03] LABS: #Basophils 0.06 10x3/uL (0.0-0.2); %Basophils 0.5 % (0.0-1.0); %Eosinophils 2.5 % (0.0-10.0); %Lymphocytes 12.5 % (21.0-51.0); %Monocytes 4.7 % (0.0-10.0); %Neutrophils 79.1 % (42.0-75.0); Hemoglobin 8.1 g/dL (14.0-18.0); Mean Corpuscular HGB CONC 28.9 g/dL (32.0-36.0); Mean Corpuscular Hemoglobin 20.3 pg (27.0-31.0); Mean Platelet Volume 10.7 fL (7.4-10.4); Platelet Count 263 10x3/uL (130-400); RBC Distribution Width 23.8 % (11.5-14.5)
[2024-05-10 05:17] LABS: ALT (SGPT) 99 U/L (8-55); AST (SGOT) 77 U/L (5-34); Albumin 3.4 g/dL (3.4-4.8); Alkaline Phosphatase 113 U/L (40-110); Anion Gap 19 mmol/L (10-20); BUN (Urea Nitrogen) 97 mg/dL (8.4-25.7); Bilirubin, Total 2.6 mg/dL (0.2-1.2); Calc. Creatinine Clearance 62 mL/min (70-130); Carbon Dioxide 27 mmol/L (23-31); Chloride 91 mmol/L (98-107); Estimated GFR 23; Globulin 3.2 g/dL (2.4-3.5); Glucose 72 mg/dL (80-115); Potassium 2.9 mmol/L (3.5-5.1); Protein, Total 6.6 g/dL (5.8-8.1); Sodium 134 mmol/L (136-145)
[2024-05-10] MEDS ORDERED: Insulin Lispro 100 UNIT/ML 10 ML VIAL SC PRN (06:41)
[2024-05-10] MEDS: Insulin Glargine 30 UNITS/0.3 ML VIAL SC SCH (08:30)
[2024-05-10 20:32] VITALS: BP 125/58; TEMP 97.1
[2024-05-10] MEDS: Amiodarone 200 MG TAB PO SCH (21:09)
== END 2024-05-11 18:25 | disposition home or self-care (01) | DRG 280 ==
LOC: ERS 20:59 → SUATTDRO 20:59 → ERHOLD 23:37 → IMCU/EMU 05-05 02:01 → 2NO 05-10 15:23
PROVIDERS: ADMIT Internal Medicine; ATTEND Internal Medicine
PROC: 30233N1 Transfusion of Nonautologous Red Blood Cells into Peripheral Vein, Percutaneous Approach (ICD-10-PCS; principal; 2024-05-05)
DX: I13.0 Hypertensive heart and chronic kidney disease with heart failure and stage 1 through stage 4 chronic kidney disease, or unspecified chronic kidney disease (principal); I50.33 Acute on chronic diastolic (congestive) heart failure; I21.A1 Myocardial infarction type 2; E66.2 Morbid (severe) obesity with alveolar hypoventilation; E87.1 Hypo-osmolality and hyponatremia; N17.9 Acute kidney failure, unspecified; Z68.43 Body mass index [BMI] 50.0-59.9, adult; E87.4 Mixed disorder of acid-base balance; I48.20 Chronic atrial fibrillation, unspecified; I25.10 Atherosclerotic heart disease of native coronary artery without angina pectoris; E78.5 Hyperlipidemia, unspecified; Z79.01 Long term (current) use of anticoagulants; E87.6 Hypokalemia; N18.30 Chronic kidney disease, stage 3 unspecified; D64.9 Anemia, unspecified; E11.22 Type 2 diabetes mellitus with diabetic chronic kidney disease; E11.65 Type 2 diabetes mellitus with hyperglycemia; Z88.1 Allergy status to other antibiotic agents; Z88.8 Allergy status to other drugs, medicaments and biological substances; Z88.5 Allergy status to narcotic agent; K64.9 Unspecified hemorrhoids; Z86.718 Personal history of other venous thrombosis and embolism; Z87.891 Personal history of nicotine dependence; Z79.4 Long term (current) use of insulin; D72.829 Elevated white blood cell count, unspecified; E11.51 Type 2 diabetes mellitus with diabetic peripheral angiopathy without gangrene; Z79.82 Long term (current) use of aspirin; Z79.899 Other long term (current) drug therapy; Z79.85 Long-term (current) use of injectable non-insulin antidiabetic drugs
CPT/HCPCS: 0241U; 36415; 36416; 36430; 71045; 76770; 80048; 80053; 80162; 82010; 82805; 83605; 83735; 83880; 84145; 84443; 84484; 85025; 85046; 85610; 85730; 86850; 86900; 86901; 87040; 93005; 93010; 93306; 94660; 96365; 96366; J0282; J1120; J1160; J1815; J2470; J3480; J7070; P9016; P9047